=== PATIENT | female | born 1970 | race Caucasian/White ===

== ENCOUNTER → 2016-09-22 | Outpatient (CLI) | payer BC ==
[2016-09-22 14:13] VITALS: BP 146/86; PULSE 59; RESP 16
--- NOTE | 2016-09-24 09:24 | P.PN ---
Subjective This is follow-up visit for this patient with a history of severe and chronic low back pain ,we have done interventional pain management injection, lumbar epidural steroid injections x3 and she continues to have significant low back pain ,and is currently on pain medications 1-Neurontin 800 mg 4 times a day 2- Decker 7.5/325 every 6 hours Patient denies any side effects of the medication, denies excessive drowsiness or sleepiness, denies suicidal ideation, and reports that the current pain medication is NOT helping To control the pain and improve activity of daily living She denies any motor or sensory deficits, she denies any change in the bowel movement patient, no fever or night sweats Physical Examinations : 1-Constitutiona : Cooperative , not in acute distress . 2-HEENT : nech ; supple , no Lymphadenopathy , no Thyromegaly , normal thyroid size . eyes : no ptosis , no icterus, no photophobia . ENT : normal of hearing , normal oropharynx , no Thrush . 3- Respiratory : Chest clear to auscultations Bilaterally , no wheezing , no Rhonchi . 4- Cardiovascular : regular rate and rhythem , S1 , S2 , no S3 , no S4. 5- Gastrointestinal : abdomen soft no tenderness , bowel sounds positive all four quadrents , no organomegally . 6- Genitourinary : Defferred . 7- neurologic : Cranial nerve II to XII intact , no focal neurological deffecit . 8-psychatric : alert , oriented X 3 , appropriate affect , intact judgment and insight . 9-Lymphatic : no Lymphadenopathy . 10- musculoskeltal : exams of the cervical spine = motor strength normal bilateral upper extremities exams of the Lumber spine = motor strength lower extremities ,thigh and legs .5/5 deep tendon reflexes : normal Knee Jerk , normal ankle Jerk . lumber facet Loading Test positive on the left side only strait leg raising test negative bilaterally Fabere test negative bilaterally Range of motion: Range of motion in flexion of the lumbar spine 30 degrees Range of motion range of motion of extension of the lumbar spine 10 Sever tenderness over the Sacroiliac joint on the Right , and Left side Assessment and plan = - Chronic low back pain secondary to lumbar degenerative disc disease , lumbar spondylosis with facet arthropathy without myelopathy , - We've done lumbar epidural steroid injections 3 she has no benefit from it , SHE is complaining of severe low back pain (left side only ) - diagnoses, prognosis , and treatment options including but not limited to physical therapy, surgical interventions, interventional therapies , and medication management including narcotics and adjuvant medication were discussed with the patient and all The questions answered -medication management = prescription refill from her primary care -procedure= patient will be scheduled for facet medial branch block and L3-4 /L4-5 /L5-S1 2 on if she had good results then proceed with the radiofrequency ablation of the medial branch lumbar area Objective - Vital Signs Vital signs: Vital Signs Temp Pulse 59 L 09/22/16 14:06 Resp 16 09/22/16 14:06 BP 146/86 09/22/16 14:06 Pulse Ox 99 09/22/16 14:06 Intake & Output 09/21/16 09/22/16 09/22/16 18:59 06:59 18:59 Weight 90.718 kg
== END | disposition home or self-care (01) ==
LOC: PNWHC3 13:40
PROVIDERS: ATTEND Specialist
DX: M51.36 Other intervertebral disc degeneration, lumbar region (principal); M47.816 Spondylosis without myelopathy or radiculopathy, lumbar region; M46.96 Unspecified inflammatory spondylopathy, lumbar region; Z79.899 Other long term (current) drug therapy
CPT/HCPCS: 99211

== ENCOUNTER 2016-10-04 09:53 | Day surgery (SDC) | payer BC ==
[~2016-10-04 09:53] MED LIST: LACTATED RINGERS 1,000 ML IV SCH
[2016-10-04 10:10] VITALS: TEMP 96.7
[2016-10-04] MEDS ORDERED: LIDOCAINE 1% 20 ML VIAL (10MG/ML) FOR IV START INTRADERMA ONE (10:11)
[2016-10-04] MEDS ORDERED: TRIAMCINOLONE ACETONIDE 40 MG/ML 1 ML VIAL ONE (10:13)
[2016-10-04] MEDS ORDERED: MIDAZOLAM 2 MG/2 ML VIAL ONE (10:13)
[2016-10-04] MEDS ORDERED: BUPIVACAINE (PF) 0.5% 30 ML VIAL ONE (10:13)
[2016-10-04] MEDS ORDERED: fentaNYL (PF) 50 MCG/ML 2 ML AMP ONE (10:13)
--- NOTE | 2016-10-04 10:35 | P.PCN ---
Date of Procedure: 10/04/16 Surgeon: Alexey Keyes Pathology: none sent Condition: stable Disposition: PACU Description of Procedure: PREOPERATIVE DIAGNOSIS: L3-L4, L4-L5, and L5-S1 spondylosis without myelopathy and facet arthropathy. POSTOPERATIVE DIAGNOSIS: L3-L4, L4-L5, and L5-S1 spondylosis without myelopathy and facet arthropathy. PROCEDURE DESCRIPTION: Patient presents for LEFT ONLY L2, L3, L4 and L5 diagnostic medial branch blocks under fluoroscopic guidance. The procedure is performed using fluoroscopic guidance during needle placement to assure proper position and maximize safety. ANESTHESIA: Local with 1% lidocaine; conscious sedation EBL: Minimal PROCEDURE INDICATION: Patient with lumbar facet arthropathy signs and symptoms, here for diagnostic medial branch block #1. Pt does not take any blood thinning medications. PROCEDURE DESCRIPTION: The patient was seen and identified in the preoperative area. Risks, benefits, complications, and alternatives were discussed with the patient (including but not limited to incomplete pain relief, bleeding, infection, nerve damage, and allergies to medications), the patient agreed to proceed with the procedure and signed the consent after all questions were answered. Patient was taken to the OR and time out was completed to verify proper patient, position, laterality of pain, and allergies. Pt was placed in the prone position and a pillow was placed under the abdomen to reduce lumbar lordosis. The lumbosacral area was prepped and draped in the usual sterile fashion. Using oblique fluoroscopy, the eye of the "Deshaun dog" of left L4 vertebral body , which corresponds to the path of the medial branch originating from the level above, which is L3 in this case, was identified. Subsequently, a 22-gauge 3.5- inch spinal needle was inserted under fluoroscopic guidance toward the eye of the "Deshaun dog" of the left L4 vertebral body, corresponding to the junction of the superior articular process and the transverse process of the pedicle of the same level. After needle tip confirmation on lateral view and after negative aspiration for CSF and blood and without paresthesias, 1 mL of a 4 ml solution of 3 ml 0.5% preservative-free bupivacaine and 40 mg Kenalog was injected. Subsequently the needle was withdrawn intact and the same procedure was repeated for the left L2, left L4 and left L5 medial branches which together with left L3 medial branch correspond to the sensory innervation of the left L3- L4, L4-L5, and L5-S1 facet joints. Needle was withdrawn intact after each injection. At the end of the procedure, the skin was cleansed and bandages were applied. COMPLICATIONS: None. DISPOSITION/PLAN: The patient taken to the recovery area after the procedure in a stable condition for observation. Patient was reexamined prior to discharge and there were no issues. Patient was discharged home, accompanied by an adult, after meeting discharged criteria. Discharge instructions were give to the patient by the staff. Patient was specifically instructed not to drive today and to rest for the rest of the day. If the patient has relief, we will repeat this left sided MBB in 4-6 weeks for her.
[2016-10-04] MEDS ORDERED: IV FLUID CONTINUATION 1,000 ML IV ONE (10:40)
[2016-10-04 10:44] VITALS: RESP 18
--- NOTE | 2016-10-04 10:48 | FL ---
EXAMINATION TYPE: FL guided pain mgmt statistic DATE OF EXAM: 10/04/2016 10:38 AM HISTORY: Pain several left-sided renal calculi noted measuring up to 6 mm.
[2016-10-04 10:56] VITALS: BP 116/65; PULSE 62
== END 2016-10-04 11:10 | disposition home or self-care (01) ==
LOC: ORPAIN 09:53
PROVIDERS: ATTEND Anesthesiology
DX: G89.29 Other chronic pain (principal); M51.36 Other intervertebral disc degeneration, lumbar region; M47.817 Spondylosis without myelopathy or radiculopathy, lumbosacral region; M46.96 Unspecified inflammatory spondylopathy, lumbar region; Z79.891 Long term (current) use of opiate analgesic; Z79.899 Other long term (current) drug therapy
CPT/HCPCS: 64493; 64494; 64495; 99152; J2250; J3301; J3010

== ENCOUNTER 2016-10-24 04:47 | Emergency (ER) | payer BC ==
[2016-10-24 05:00] VITALS: RESP 16; TEMP 100
[2016-10-24] MEDS ORDERED: METOCLOPRAMIDE 5 MG/ML 2 ML VIAL IVP STA (05:15)
[2016-10-24] MEDS ORDERED: SODIUM CHLORIDE 0.9% 1,000 ML IV ONE (05:15)
[2016-10-24] MEDS ORDERED: diphenhydrAMINE 50 MG/ML 1 ML VIAL IVP STA (05:15)
[2016-10-24] MEDS ORDERED: KETOROLAC 30 MG/ML 1 ML VIAL IVP STA (05:15)
[2016-10-24] MEDS ORDERED: SUMAtriptan SUCCINATE 6 MG/0.5 ML VIAL SQ STA (06:11)
[2016-10-24] MEDS ORDERED: MORPHINE SULFATE 4 MG/ML SYRINGE IV STA (06:11)
--- NOTE | 2016-10-24 06:48 | ED ---
Headache HPI - General Chief Complaint: Headache Stated Complaint: Migraine x 3 days/Fever Time Seen by Provider: 10/24/16 05:04 Mode of arrival: ambulatory - History of Present Illness Initial Comments: This patient is a 46-year-old woman with history of previous migraine headaches , who states that she has had one of her usual migraine headaches that is been going on for about 3 days now. She states that it is similar in most respects, other than the fact that the Imitrex that she usually takes is not taking the headache away. She states that another respects it is similar. She denies any other symptoms, including no fever or chills, neck pain or stiffness, neurologic symptoms. It is not the worst headache that she has ever had. MD Complaint: "migraine" Onset/Timin -: days(s) Onset Description: gradual Location: left, temporal Severity: severe Quality: aching, similar to previous headaches Consistency: constant Improves With: nothing Worsens With: light, noise Context: occurred at rest Treatments Prior to Arrival: migraine medication - Related Data Home Medications Medication Instructions Recorded Confirmed Gabapentin [Neurontin] 800 mg PO QID 04/24/14 10/24/16 Ondansetron HCl [Zofran] 8 mg PO DIRECTED PRN 04/24/14 10/24/16 Pyridostigmine [Mestinon] 60 mg PO TID 04/24/14 10/24/16 SUMAtriptan SUCCINATE [Imitrex] 100 mg PO DIRECTED PRN 04/24/14 10/24/16 cloNIDine HCL [Catapres] 0.05 mg PO BID 04/24/14 10/24/16 HYDROcodone/APAP 7.5-325MG [[place] 7.5 mg PO Q6HR PRN 06/14/14 10/24/16 7.5] tiZANidine HCL [Zanaflex] 4 mg PO Q6HR PRN 07/09/14 10/24/16 Cholecalciferol [Vitamin D3] 5,000 unit PO DAILY 06/22/16 10/24/16 Allergies Allergy/AdvReac Type Severity Reaction Status Date / Time adhesive Allergy Rash/Hives Verified 09/22/16 14:13 adhesive tape Allergy Rash/Hives Verified 09/22/16 14:13 amoxicillin [Amoxicillin] Allergy Rash/Hives Verified 09/22/16 14:13 bupropion HCl Allergy Rash/Hives, Verified 09/22/16 14:13 [From Wellbutrin] DYSPNEA clindamycin HCl Allergy Rash/Hives Verified 09/22/16 14:13 [From Cleocin] clindamycin palmitate HCl Allergy Rash/Hives Verified 09/22/16 14:13 [From Cleocin] clindamycin phosphate Allergy Rash/Hives Verified 09/22/16 14:13 [From Cleocin] codeine Allergy Nausea & Verified 09/22/16 14:13 Vomiting,HIVES doxycycline Allergy Rash/Hives, Verified 09/22/16 14:13 SOB erythromycin base Allergy Abdominal Verified 09/22/16 14:13 [Erythromycin Base] Pain estrogens, conjugated Allergy Itching Verified 09/22/16 14:13 [From Premarin] etodolac [From Lodine] Allergy Rash/Hives Verified 09/22/16 14:13 pregabalin [From Lyrica] Allergy BLURRED Verified 09/22/16 14:13 VISION AND HAND NUMBNESS sulfamethoxazole Allergy Rash/Hives Verified 09/22/16 14:13 [From Bactrim] topiramate [From Topamax] Allergy HAND Verified 09/22/16 14:13 NUMBNESS trimethoprim [From Bactrim] Allergy Rash/Hives Verified 09/22/16 14:13 Review of Systems ROS Statement: Those systems with pertinent positive or pertinent negative responses have been documented in the HPI. ROS Other: All systems not noted in ROS Statement are negative. Constitutional: Denies: fever, chills, weakness Eyes: Denies: eye pain, vision change Respiratory: Denies: cough, dyspnea Gastrointestinal: Reports: nausea. Denies: abdominal pain, vomiting Musculoskeletal: Denies: back pain Skin: Denies: rash Neurological: Reports: headache. Denies: weakness, numbness, paresthesias, confusion Past Medical History Past Medical History: Deep Vein Thrombosis (DVT), Fibromyalgia, Osteoarthritis ( OA), Supraventricular Tachycardia (SVT) Additional Past Medical History / Comment(s): HX KIDNEY STONES, TMJ, MIGRAINES, VARICOSE VEINS,ULCERS, IBS, MYASTHEMIA GRAVIS, Herniated Discs. History of Any Multi-Drug Resistant Organisms: None Reported Past Surgical History: Cardiac Ablation, Section, Cholecystectomy, Hysterectomy, Tubal Ligation Additional Past Surgical History / Comment(s): VICKY.VARICOSE VEIN STRIPPING, OOPHERECTOMY,KITTY FUNDOPLICATION, PAIN PROCEDURE. Past Anesthesia/Blood Transfusion Reactions: Motion Sickness Past Psychological History: No Psychological Hx Reported Smoking Status: Never smoker Past Alcohol Use History: Occasional Past Drug Use History: None Reported - Past Family History Mother Family Medical History: Cancer General Exam General appearance: alert, in no apparent distress Head exam: Present: atraumatic, normocephalic, normal inspection Eye exam: Present: normal appearance, PERRL, EOMI. Absent: scleral icterus, conjunctival injection, nystagmus ENT exam: Present: normal oropharynx Neck exam: Present: normal inspection, full ROM. Absent: meningismus Neurological exam: Present: alert, oriented X3, CN II-XII intact, normal gait. Absent: motor sensory deficit Skin exam: Present: warm, dry, intact, normal color. Absent: rash Course Vital Signs 10/24/16 10/24/16 04:57 06:00 Temperature 100 F H Pulse Rate 84 74 Respiratory 16 16 Rate Blood Pressure 163/82 131/74 O2 Sat by Pulse 98 97 Oximetry Disposition Clinical Impression: Headache Disposition: HOME SELF-CARE Condition: Good Instructions: Acute Headache (ED) Referrals: Nathan Crespo MD [Primary Care Provider] - 1-2 days
[2016-10-24] MEDS ORDERED: methylPREDNISolone SOD SUCCI 125 MG/2 ML VIAL IV STA (06:51)
[2016-10-24 07:15] VITALS: BP 131/78; PULSE 71
== END 2016-10-24 07:14 | disposition home or self-care (01) ==
LOC: EC 04:47
DX: R51 Headache (principal); M79.7 Fibromyalgia; Z79.899 Other long term (current) drug therapy; Z88.1 Allergy status to other antibiotic agents; Z88.5 Allergy status to narcotic agent; Z88.0 Allergy status to penicillin; Z88.2 Allergy status to sulfonamides; Z88.8 Allergy status to other drugs, medicaments and biological substances; Z86.718 Personal history of other venous thrombosis and embolism
CPT/HCPCS: 99283; 96374; 96375; 96372; J3030; J2270; J1200; J2765; J2930; J1885

== ENCOUNTER 2016-11-03 08:38 | Day surgery (SDC) | payer BC ==
[2016-11-03 08:55] VITALS: RESP 16; TEMP 96.8
[2016-11-03] MEDS ORDERED: LIDOCAINE 1% 20 ML VIAL (10MG/ML) FOR IV START INTRADERMA ONE (09:03)
[2016-11-03] MEDS ORDERED: BUPIVACAINE (PF) 0.5% 30 ML VIAL ONE (09:46)
[2016-11-03] MEDS ORDERED: fentaNYL (PF) 50 MCG/ML 2 ML AMP ONE (09:46)
[2016-11-03] MEDS ORDERED: TRIAMCINOLONE ACETONIDE 40 MG/ML 1 ML VIAL ONE (09:46)
[2016-11-03] MEDS ORDERED: MIDAZOLAM 2 MG/2 ML VIAL ONE (09:46)
--- NOTE | 2016-11-03 10:10 | P.PCN ---
Date of Procedure: 11/03/16 Surgeon: Alexey Keyes Pathology: none sent Condition: stable Disposition: PACU Description of Procedure: PREOPERATIVE DIAGNOSIS: L3-L4, L4-L5, and L5-S1 spondylosis without myelopathy and facet arthropathy. POSTOPERATIVE DIAGNOSIS: L3-L4, L4-L5, and L5-S1 spondylosis without myelopathy and facet arthropathy. PROCEDURE DESCRIPTION: Patient presents for LEFT ONLY L2, L3, L4 and L5 diagnostic medial branch blocks under fluoroscopic guidance. The procedure is performed using fluoroscopic guidance during needle placement to assure proper position and maximize safety. ANESTHESIA: Local with 1% lidocaine; conscious sedation EBL: Minimal PROCEDURE INDICATION: Patient with lumbar facet arthropathy signs and symptoms, here for diagnostic medial branch block #2, patient is still having >60% relief from first procedure although it took two weeks to kick in. Pt does not take any blood thinning medications. PROCEDURE DESCRIPTION: The patient was seen and identified in the preoperative area. Risks, benefits, complications, and alternatives were discussed with the patient (including but not limited to incomplete pain relief, bleeding, infection, nerve damage, and allergies to medications), the patient agreed to proceed with the procedure and signed the consent after all questions were answered. Patient was taken to the OR and time out was completed to verify proper patient, position, laterality of pain, and allergies. Pt was placed in the prone position and a pillow was placed under the abdomen to reduce lumbar lordosis. The lumbosacral area was prepped and draped in the usual sterile fashion. Using oblique fluoroscopy, the eye of the "Deshaun dog" of left L4 vertebral body , which corresponds to the path of the medial branch originating from the level above, which is L3 in this case, was identified. Subsequently, a 22-gauge 3.5- inch spinal needle was inserted under fluoroscopic guidance toward the eye of the "Deshaun dog" of the left L4 vertebral body, corresponding to the junction of the superior articular process and the transverse process of the pedicle of the same level. After needle tip confirmation on lateral view and after negative aspiration for CSF and blood and without paresthesias, 1 mL of a 4 ml solution of 3 ml 0.5% preservative-free bupivacaine and 40 mg Kenalog was injected. Subsequently the needle was withdrawn intact and the same procedure was repeated for the left L2, left L4 and left L5 medial branches which together with left L3 medial branch correspond to the sensory innervation of the left L3- L4, L4-L5, and L5-S1 facet joints. Needle was withdrawn intact after each injection. At the end of the procedure, the skin was cleansed and bandages were applied. COMPLICATIONS: None. DISPOSITION/PLAN: The patient taken to the recovery area after the procedure in a stable condition for observation. Patient was reexamined prior to discharge and there were no issues. Patient was discharged home, accompanied by an adult, after meeting discharged criteria. Discharge instructions were give to the patient by the staff. Patient was specifically instructed not to drive today and to rest for the rest of the day. If the patient has relief, we will proceed with left lumbar RFA (four levels).
[2016-11-03] MEDS ORDERED: IV FLUID CONTINUATION 1,000 ML IV ONE (10:12)
[2016-11-03 10:31] VITALS: BP 121/74; PULSE 61
--- NOTE | 2016-11-03 10:52 | FL ---
EXAMINATION TYPE: FL guided pain mgmt statistic DATE OF EXAM: 11/03/2016 10:15 AM FLUOROSCOPY Fluoroscopy time of 20 seconds was used during lumbar facet pain intervention procedure. 4 image/s d ocument/s the procedure.
== END 2016-11-03 10:45 | disposition home or self-care (01) ==
LOC: ORPAIN 08:38
PROVIDERS: ATTEND Anesthesiology
DX: G89.29 Other chronic pain (principal); M47.817 Spondylosis without myelopathy or radiculopathy, lumbosacral region; M46.96 Unspecified inflammatory spondylopathy, lumbar region; G70.00 Myasthenia gravis without (acute) exacerbation; R51 Headache; Z79.891 Long term (current) use of opiate analgesic; Z79.899 Other long term (current) drug therapy
CPT/HCPCS: 64493; 64494; 64495; 99152; J2250; J3301; J3010

== ENCOUNTER 2016-12-23 06:29 | Day surgery (SDC) | payer BC ==
[2016-12-20 15:03] VITALS: BMI 29.5
[2016-12-23 07:24] VITALS: RESP 16; TEMP 97.9
[2016-12-23] MEDS ORDERED: LACTATED RINGERS 1,000 ML IV ONE (07:28)
[2016-12-23] MEDS ORDERED: LIDOCAINE 1% 20 ML VIAL (10MG/ML) FOR IV START INTRADERMA ONE (07:29)
[2016-12-23] MEDS ORDERED: LACTATED RINGERS 1,000 ML IV SCH (08:00)
[2016-12-23] MEDS ORDERED: MIDAZOLAM 2 MG/2 ML VIAL ONE (08:07)
[2016-12-23] MEDS ORDERED: BUPIVACAINE (PF) 0.5% 30 ML VIAL ONE (08:07)
[2016-12-23] MEDS ORDERED: TRIAMCINOLONE ACETONIDE 40 MG/ML 1 ML VIAL ONE (08:07)
[2016-12-23] MEDS ORDERED: fentaNYL (PF) 50 MCG/ML 2 ML AMP ONE (08:07)
--- NOTE | 2016-12-23 08:36 | P.PCN ---
Date of Procedure: 12/23/16 Preoperative Diagnosis: Lumbar spondylosis without myelopathy Postoperative Diagnosis: Same as above Procedure(s) Performed: Left lumbar medial branch radiofrequency ablation under fluoroscopic guidance for the medial branches: L3, L4, and the dorsal ramus of L5 Implants: Anesthesia: other (Moderate sedation) Surgeon: Masoud Vicente Pathology: none sent Condition: stable Disposition: PACU Indications for Procedure: Operative Findings: Description of Procedure: The patient was seen in the preop holding area consent was obtained then she was brought into the procedure room and placed in prone position. Skin was prepped with Betadine 3 and draped in a sterile manner. Lidocaine 1% was used to numb the skin up at the target points that were chosen as follows: The L5-S1 level which corresponds to the dorsal ramus of L5 the target point was the superior medial aspect of the sacral ala on the left side of the spine on the AP view of fluoroscopy, and for the L3 and L4 medial branches the target points were the connection between the transverse process and the superior articular process of L4 and L5 vertebra respectively on the left oblique view of fluoroscopy. I used 18-gauge 100 mm in length with 10 mm curved active tip radiofrequency ablation needles for this procedure. He, oblique, and lateral views of fluoroscopy were used to verify needle tip positions. Then motor stimulation started which showed only local twitches of these needles with no radiation of twitching to the left lower extremity. For the third a solution of 2 MLS Marcaine 0.5% +40 mg of Kenalog and 1 mL of the solution was given in each needle. Radiofrequency ablation was then started for 90 seconds at 80C and after the first session is done the needles were withdrawn by 1 or 2 mm and the bevels were turned 180 and another session of ablation was started for 90 seconds at 80C. Patient tolerated procedure well. Fluoroscopy time 16 seconds.
[2016-12-23] MEDS ORDERED: IV FLUID CONTINUATION 1,000 ML IV ONE (08:38)
[2016-12-23 08:57] VITALS: BP 109/72; PULSE 57
--- NOTE | 2016-12-23 15:51 | FL ---
Fluoroscopy INDICATION: Pain FINDINGS: Fluoroscopy time: 16 seconds. Images obtained: 1. IMPRESSIONS: 1. Documentation of fluoroscopy.
== END 2016-12-23 09:12 | disposition home or self-care (01) ==
LOC: ORPAIN 06:29
PROVIDERS: ATTEND Anesthesiology
DX: M47.816 Spondylosis without myelopathy or radiculopathy, lumbar region (principal); Z79.899 Other long term (current) drug therapy
CPT/HCPCS: 99152; 64635; 64636 ×2; J2250; J3301; J3010

== ENCOUNTER → 2017-02-08 | Outpatient (CLI) | payer BC ==
[2017-02-08 13:57] VITALS: PULSE 61; RESP 16; TEMP 98.5
--- NOTE | 2017-02-08 14:13 | P.PN ---
Progress Note - Text Patient returns for followup for chronic back pain with radiation to left hip. Patient recently underwent left lumbar RFA in November, which has provided good relief since procedure, except for a two-week span (beginning two weeks AFTER lumbar RFA) where she had severe pain in the left side of her low back that was only improved by lying down. She was sent to Dr. Al by her PCP who did not do any other interventions or scans for her during this time and the pain resolved in approximately 13 days. Patient continues on [place] medications for pain from her PCP with good relief. Patient denies adverse drug effects from medications. Today, pt denies new-onset weakness, bowel/bladder incontinence, or any other signs or symptoms of cauda equina syndrome. There are no signs of acute intoxication, and no indications of medication diversion or overuse. In addition to above, 13-point review of systems is also negative for chest pain , shortness of breath, changes in vision, changes in hearing, new onset weakness , abdominal pain, diarrhea, extreme fatigue, malaise, fever, skin changes, homicidal or suicidal ideation, or bowel or bladder incontinence. Vital Signs: Reviewed in EMR Gen: WDWN, AAOx3, NAD HEENT: NCAT, EOMI, hearing grossly normal Pulm: resp unlabored Abd: soft, NT, ND Neck: supple, trachea midline ROM in flexion lumbar spine: reduced ROM in extension lumbar spine: reduced Lumbar paravertebral tenderness: + Facet loading: + L side SI joint tenderness: neg All's test: + L side Straight leg raise: neg Neuro: CN II-XII grossly intact, muscle strength lower extremities PRESERVED Imaging: Reviewed in EMR Assessment: 1. lumbar spondylosis 2. chronic pain syndrome 3. chronic use of opioids Plan: 1. Explanation: Opioid and psychological risk scores were reviewed. Diagnoses , prognoses, and multiple treatment options including but not limited to physical therapy, interventional therapies, adjuvant medical therapies, narcotic medication therapies, and surgery were discussed with the patient and all questions were answered to the patient's satisfaction. 2. Opioid agreement: Patient has previously signed narcotic agreement, and was orally counseled to not overuse, abuse, divert, or cell medications, and to take them as prescribed by only 1 healthcare provider. The patient was also counseled to store opioid medications in a safe and preferably locked location. Patient was also counseled against driving or operating heavy equipment while using narcotic medications and also to not use alcohol or any illicit or recreational drugs. The patient verbalized understanding that lack of compliance with any of the above and likely result in failure to renew narcotic prescriptions, possible discharge from the clinic, and possible legal ramifications thereafter if indicated. 3. Counseling: The patient was counseled extensively on BODY MASS INDEX, EXERCISE. Specifically, the patient was instructed regarding the importance of weight control, and exercise in the context of both chronic pain and overall health. 4. Procedures: none for now 5. Consultations: None 6. Investigations: None 7. Medications: none prescribed 8. Disposition: f/u as needed; patient can call to schedule next left lumbar RFA in 4-5 months. Will hold off on iliolumbar ligament injection as (presumed) acute post-RF pain resolved; will consider if it returns. PQRS measures: 1-Patient's medications are documented in the chart. 2-Tobacco use is negative 3-Patient has not had a pneumococcal vaccine. 4-Advanced care planning discussed, patient unable to give. 5-Opioid contract signed with the patient. 6-Pain positive, follow-up visit or procedure scheduled 7-Patient's blood pressure measured and documented, and patient will follow up with the primary care due to hypertension. 8-Patient's weight was measured, and body mass index ABOVE the normal limits, and counseling was done. Patient instructed to follow up with PCP. 9-Patient WAS NOT identified as an unhealthy alcohol user.
[2017-02-08 14:17] VITALS: BP 141/91
== END ==
LOC: PNWHC3 13:32
PROVIDERS: ATTEND Anesthesiology
DX: M47.816 Spondylosis without myelopathy or radiculopathy, lumbar region (principal); Z79.891 Long term (current) use of opiate analgesic
CPT/HCPCS: 99211

== ENCOUNTER → 2017-05-18 | Outpatient (CLI) | payer BC ==
[2017-05-18 14:27] LABS: Basophils # (A) 0.1 k/uL (0-0.2); Basophils % (A) 1 %; CH 31.9; CHCM 33.1; Eosinophils # (A) 0.1 k/uL (0-0.7); Eosinophils % (A) 1 %; HCT 44.5 % (34.0-46.0); Luc # (Auto) 0.19; Luc % (Auto) 3; Lymphocytes # (A) 1.6 k/uL (1.0-4.8); Lymphocytes % (A) 25 %; MCH 30.5 pg (25.0-35.0); MCHC 31.4 g/dL (31.0-37.0); MCV 97.1 fL (80.0-100.0); Mean Platelet Volume 7.2; Monocytes # (A) 0.4 k/uL (0-1.0); Monocytes % (A) 6 %; Neutrophils # (A) 4.1 k/uL (1.3-7.7); Neutrophils % (A) 64 %; RBC 4.58 m/uL (3.80-5.40); RDW 13.2 % (11.5-15.5); WBC 6.4 k/uL (3.8-10.6); WBC (Perox) 6.34
[2017-05-18 14:38] LABS: ALT 27 U/L (9-52); AST 20 U/L (14-36); Alkaline Phosphatase 117 U/L (38-126); Anion Gap 6 mmol/L; Blood Urea Nitrogen 10 mg/dL (7-17); Carbon Dioxide 26 mmol/L (22-30); Chloride 108 mmol/L (98-107); Glucose 91 mg/dL (74-99); Non-African American GFR(MDRD) >60 (>60 ml/min/1.73 sqM); Potassium 4.4 mmol/L (3.5-5.1); Sodium 140 mmol/L (137-145); Total Bilirubin 0.4 mg/dL (0.2-1.3); Total Protein 7.3 g/dL (6.3-8.2)
[2017-05-19 11:38] LABS: Free Kappa Lt Chain Qnt, Serum 2.43 mg/dL (0.33-1.94)
== END | disposition home or self-care (01) ==
LOC: LABWHC1 13:42
PROVIDERS: ATTEND Family Medicine
DX: Z00.00 Encounter for general adult medical examination without abnormal findings (principal); G70.00 Myasthenia gravis without (acute) exacerbation
CPT/HCPCS: 36415; 80053; 83883; 84439; 84443; 85025

== ENCOUNTER 2017-05-31 08:54 | Day surgery (SDC) | payer BC ==
[2017-05-27 08:17] VITALS: BMI 29.8
[2017-05-31 09:13] VITALS: RESP 16; TEMP 97.8
[2017-05-31] MEDS ORDERED: LIDOCAINE 1% 20 ML VIAL (10MG/ML) FOR IV START INTRADERMA ONE (09:14)
--- NOTE | 2017-05-31 10:26 | P.PCN ---
Date of Procedure: 05/31/17 Procedure(s) Performed: PREOPERATIVE DIAGNOSIS: 1- Lumbar radiculitis 2-Lumbar spondylosis with Facet arthropathy without myelopathy POSTOPERATIVE DIAGNOSIS: Same as preop diagnosis. PROCEDURE 1. Lumbar epidural steroid injection under fluoroscopic guidance at the L5-S1 level. ( left side directed ) 2. Lumbar epidurogram. ANESTHESIA: Local with 1% lidocaine 3 ml and IV sedation with Versed 2 mg , and fentanyle 100 Mcg EBL: Minimal PROCEDURE INDICATION: The patient with low back pain and radiculitis symptoms unresponsive to conservative treatment. Fluoroscopy was used to optimize visualization of the needle placement and to maximize safety. PROCEDURE DESCRIPTION / TECHNIQUE: The patient was seen and identified in the preoperative area. Risks, benefits , complications including but not limited to infections ,bleeding ,allergic reaction to the medications ,nerve damage and not complete pain releife , and alternatives were discussed with the patient. The patient agreed to proceed with the procedure and signed the consent. IV was started, and vital signs were stable. Patient was taken to the OR and time out was completed. The patient was placed in the prone position on procedure table and a pillow was placed under the abdomen to reduce lumbar lordosis. The lumbosacral area was prepped and draped in the usual sterile fashion.ere closely monitored during the procedure. Conscious sedation was used during the procedure to decrease patients anxiety. Vital signs was monitered during the entire procedure. Using anterior-posterior fluoroscopy, the L5-S1 interlaminar space was identified and the skin over this site was marked and then infiltrated with 1% lidocaine subcutaneously. Subsequently, a 20-gauge Tuohy epidural needle was inserted and advanced toward the epidural space using the ``Loss of resistance technique and guided by AP and lateral fluoroscopy. The correct needle position in the epidural space was verified with the injection of 2 mL of the water soluble contrast dye Omnipaque 180 contrast and observing an excellent epidurogram with the epidural spread of the dye, after negative aspiration for blood and CSF and in the absence of paresthesias. Again after negative aspiration, a 6 ml mixture containing 20 mg of Dexamethasone and 2 ml of preservative free Normal Saline, and 2 ml of preservative free lidocaine 1% solution was injected and a washout of epidurogram was seen. Needle was withdrawn intact, skin was cleansed, and bandages were applied. COMPLICATIONS: None DISPOSITION / PLANS: The patient was placed in a supine position and transferred to the recovery area in a stable condition for observation. There was no evidence of lower extremity motor or sensory deficit after the procedure. Patient was discharged from the recovery room after meeting discharge criteria. Home discharge instructions were given to the patient by the staff. The patient was reexamined prior to discharge. The patient will schedule a follow up in the clinic in 2-4 weeks.
[2017-05-31] MEDS ORDERED: IV FLUID CONTINUATION 1,000 ML IV ONE (10:31)
[2017-05-31 10:44] VITALS: PULSE 52
[2017-05-31 10:58] VITALS: BP 101/63
--- NOTE | 2017-05-31 11:01 | FL ---
EXAMINATION TYPE: FL guided pain mgmt statistic DATE OF EXAM: 05/31/2017 HISTORY: Flouroscopy time 1 seconds of fluoroscopy provided. IMPRESSION: 1. Fluoroscopy time.
== END 2017-05-31 11:01 | disposition home or self-care (01) ==
LOC: ORPAIN 08:54
PROVIDERS: ATTEND Specialist
DX: M47.26 Other spondylosis with radiculopathy, lumbar region (principal); M46.96 Unspecified inflammatory spondylopathy, lumbar region; Z86.718 Personal history of other venous thrombosis and embolism; I47.1 Supraventricular tachycardia
CPT/HCPCS: 62323; J2250; J1100; Q9965; J3010; 99152

== ENCOUNTER → 2017-06-30 | Outpatient (CLI) | payer BC ==
--- NOTE | 2017-06-30 13:14 | MM ---
Reason for exam: screening (asymptomatic). Last mammogram was performed 11 months ago. History: Patient is postmenopausal. Benign US breast aspiration single LT of the left breast, August 15, 2015. Took hormonal contraceptives for 4 years. Physical Findings: A clinical breast exam by your physician is recommended on an annual basis and results should be correlated with mammographic findings. MG 3D Screening Mammo W/Cad Bilateral CC and MLO view(s) were taken. Prior study comparison: July 29, 2016, bilateral MG 3d screening mammo w/cad. August 15, 2015, left breast MG diagnostic mammo LT wo CAD. There are scattered fibroglandular densities. Previous mammotome biopsy in the left breast. No significant changes when compared with prior studies. ASSESSMENT: Negative, BI-RAD 1 RECOMMENDATION: Routine screening mammogram of both breasts in 1 year.
== END | disposition home or self-care (01) ==
LOC: RADMAMWWP 10:39
PROVIDERS: ATTEND Family Medicine
DX: Z12.31 Encounter for screening mammogram for malignant neoplasm of breast (principal)
CPT/HCPCS: 77063; G0202

== ENCOUNTER → 2017-10-06 | Outpatient (CLI) | payer BC ==
[2017-10-06 12:06] VITALS: BP 158/93; PULSE 62; RESP 18
--- NOTE | 2017-10-06 12:37 | P.PN ---
Progress Note - Text Progress Note Date: 10/06/17 This is a 46-year-old female with history of chronic lower back and left hip pain with radiation to the left foot. The patient denies any numbness or tingling in the left lower extremity. She has an exacerbation of her lower back and leg pain for the last couple of days however she feels that her pain is better today. The patient denies any bowel or bladder dysfunction. The pain wakes her up at night. She is scheduled to see Dr. Álvarez tomorrow for possible hip pathology however the X-ray that she had previously did not show any signs of arthritis. The patient had good early for her pain after the last lumbar epidural that was done in July 2017. In addition to above, 13-point review of systems is also negative for chest pain , shortness of breath, changes in vision, changes in hearing, new onset weakness , abdominal pain, diarrhea, extreme fatigue, malaise, fever, skin changes, homicidal or suicidal ideation, or bowel or bladder incontinence. Vital Signs: Reviewed in EMR Gen: ,AAOx3, NAD HEENT: normal Pulm: resp unlabored Neck: supple, trachea midline ROM in flexion lumbar spine: reduced ROM in extension lumbar spine: reduced Lumbar paravertebral tenderness: + Facet loading: + L side, neg R side SI joint tenderness: neg All's test: - L side, -R side Straight leg raise: - Internal and external rotation of the left hip joint did not elicit hip pain. She has tenderness in the left greater trochanter She has normal and symmetrical deep tendon reflexes in the lower extremities she has mild weakness in the left knee flexion and extension due to her pain today. Neuro: CN II-XII grossly intact, muscle strength lower extremities PRESERVED Imaging: Reviewed in EMR Assessment: 1. lumbar spondylosis 2. chronic pain syndrome 3. chronic use of opioids 4. lumbar radiculitis 5-left greater trochanter bursitis Plan: 1. Explanation: Opioid and psychological risk scores were reviewed. Diagnoses , prognoses, and multiple treatment options including but not limited to physical therapy, interventional therapies, adjuvant medical therapies, narcotic medication therapies, and surgery were discussed with the patient and all questions were answered to the patient's satisfaction. 2. Opioid agreement: Patient has previously signed narcotic agreement, and was orally counseled to not overuse, abuse, divert, or cell medications, and to take them as prescribed by only 1 healthcare provider. The patient was also counseled to store opioid medications in a safe and preferably locked location. Patient was also counseled against driving or operating heavy equipment while using narcotic medications and also to not use alcohol or any illicit or recreational drugs. The patient verbalized understanding that lack of compliance with any of the above and likely result in failure to renew narcotic prescriptions, possible discharge from the clinic, and possible legal ramifications thereafter if indicated. 3. Counseling: The patient was counseled extensively on BODY MASS INDEX, EXERCISE. Specifically, the patient was instructed regarding the importance of weight control, and exercise in the context of both chronic pain and overall health. 4. Procedures: LESI x 1 left paramedian, and left greater trochanter bursa steroid injection 5. Consultations: The patient will see Dr. Álvarez tomorrow for her left hip pain 6. Investigations: None 7. Medications: none prescribed, the patient has enough [place] and she will resume using Zanaflex for a few days until this exacerbation is over 8. Disposition: f/u as procedure as scheduled PQRS measures: 1-Patient's medications are documented in the chart. 2-Tobacco use is negative 3-Patient has not had a pneumococcal vaccine. 4-Advanced care planning discussed, patient unable to give. 5-Opioid contract signed with the patient. 6-Pain positive, follow-up visit or procedure scheduled 7-Patient's blood pressure measured and documented, and patient will follow up with the primary care due to hypertension. 8-Patient's weight was measured, and body mass index ABOVE the normal limits, and counseling was done. Patient instructed to follow up with PCP. 9-Patient WAS NOT identified as an unhealthy alcohol user.
== END ==
LOC: PNWHC3 11:53
PROVIDERS: ATTEND Anesthesiology
DX: G89.4 Chronic pain syndrome (principal); M47.26 Other spondylosis with radiculopathy, lumbar region; Z79.891 Long term (current) use of opiate analgesic; M70.62 Trochanteric bursitis, left hip
CPT/HCPCS: 99211

== ENCOUNTER 2017-11-07 08:23 | Day surgery (SDC) | payer BC ==
[2017-11-02 08:52] VITALS: BMI 29.0
[2017-11-07] MEDS ORDERED: LACTATED RINGERS 1,000 ML IV ONE (09:21)
[2017-11-07 09:22] VITALS: PULSE 57; TEMP 97.4
[2017-11-07] MEDS ORDERED: LIDOCAINE 1% 20 ML VIAL (10MG/ML) FOR IV START INTRADERMA ONE (09:22)
--- NOTE | 2017-11-07 09:56 | P.PCN ---
Date of Procedure: 11/07/17 Preoperative Diagnosis: Lumbar Radiculopathy Postoperative Diagnosis: Lumbar Radiculopathy Procedure(s) Performed: Lumbar Epidural Steroid Injection Description of Procedure: Description of Procedure: PREOPERATIVE DIAGNOSIS: 1-Lumbar radiculitis. POSTOPERATIVE DIAGNOSIS: 1-Lumbar radiculitis. PROCEDURE 1. Lumbar epidural steroid injection under fluoroscopic guidance at the L5-S1 level. 2. Lumbar epidurogram. ANESTHESIA: Local with 1% lidocaine; IV sedation with Versed/fentanyl. EBL: Minimal PROCEDURE INDICATION: The patient with low back pain and radiculitis symptoms unresponsive to conservative treatment after two weeks' relief from first LESI. Fluoroscopy was used to optimize visualization of the needle placement and to maximize safety. No use of blood thinners. PROCEDURE DESCRIPTION / TECHNIQUE: The patient was seen and identified in the preoperative area. Risks, benefits, complications, and alternatives were discussed with the patient, including but not limited to bleeding, infection, nerve damage, allergic reactions to medications, and incomplete pain relief. The patient agreed to proceed with the procedure and signed the consent after all questions were answered. IV was started, and vital signs were stable. Patient was taken to the OR and time out was completed to confirm patient position, procedure, laterality of pain, and allergies. The patient was placed in the prone position on procedure table and a pillow was placed under the abdomen to reduce lumbar lordosis. The lumbosacral area was prepped and draped in the usual sterile fashion. Critical pause was taken. Vital signs were closely monitored during the procedure. Conscious sedation was used during the procedure to decrease patients anxiety. Using anterior-posterior fluoroscopy, the L5-S1 interlaminar space was identified and the skin over this site was marked and then infiltrated with 1% lidocaine subcutaneously in a left paramedian approach. Subsequently, a 20- gauge 3.5-inch Tuohy epidural needle was inserted and advanced toward the epidural space using the Loss of resistance technique and guided by AP and lateral fluoroscopy. The correct needle position in the epidural space was verified with the injection of 2 mL of the water soluble contrast dye Omnipaque 300 contrast and observing an excellent epidurogram with the epidural spread of the dye, after negative aspiration for blood and CSF and in the absence of paresthesias. Again after negative aspiration, a 5 ml mixture containing 10 mg of PF Decadron and 4 ml of preservative free Normal Saline was injected and a washout of epidurogram was seen. Needle was withdrawn intact, skin was cleansed , and bandages were applied. COMPLICATIONS: None COMMENTS: DISPOSITION / PLANS: The patient was placed in a supine position and transferred to the recovery area in a stable condition for observation. There was no evidence of lower extremity motor or sensory deficit after the procedure. Patient was discharged from the recovery room after meeting discharge criteria. Home discharge instructions were given to the patient by the staff. The patient was reexamined prior to discharge and there were no issues. The patient will schedule a follow up in the clinic in 2-4 weeks.
[2017-11-07] MEDS ORDERED: IV FLUID CONTINUATION 1,000 ML IV ONE (10:25)
[2017-11-07 10:30] VITALS: RESP 18
[2017-11-07 10:45] VITALS: BP 112/57
--- NOTE | 2017-11-07 10:59 | FL ---
EXAMINATION TYPE: FL guided pain mgmt statistic DATE OF EXAM: 11/07/2017 HISTORY: Pain LESI. 6 secs FL time. [address] Shaikh.
== END 2017-11-07 11:00 | disposition home or self-care (01) ==
LOC: ORPAIN 08:23
PROVIDERS: ATTEND Anesthesiology
DX: M54.16 Radiculopathy, lumbar region (principal); G70.00 Myasthenia gravis without (acute) exacerbation; Z90.710 Acquired absence of both cervix and uterus
CPT/HCPCS: 62323; J2250; J3301; J3010; Q9966

== ENCOUNTER → 2017-12-15 | Outpatient (CLI) | payer BC ==
[2017-12-15 12:40] VITALS: BP 158/95; PULSE 65; RESP 16
--- NOTE | 2017-12-15 12:52 | P.PAINPG ---
Subjective Progress Note Date: 12/15/17 Principal diagnosis: History of back pain and left hip pain This is a very pleasant 47-year-old woman is undergone previous epidural steroid injections from our facility. She says these are very helpful in reducing her back pain is also of her leg pain. She complains today of intractable left hip pain. She feels this is very deep inside of her back. She has followed up with an orthopedist for her hip who felt this was not caused by her hip but rather coming from her back. Objective - Vital Signs Vital signs: Vital Signs Temp Pulse 65 12/15/17 12:34 Resp 16 12/15/17 12:34 BP 158/95 12/15/17 12:34 Pulse Ox Intake & Output 12/14/17 12/15/17 12/15/17 18:59 06:59 18:59 Weight 90.718 kg - Exam Gen: WDWN, AAOx3, NAD HEENT: NCAT, EOMI, hearing grossly normal Pulm: resp unlabored Good range of motion with left hip abduction, adduction, flexion, extension. Unable to reproduce symptoms with these maneuvers. Neuro: muscle strength lower extremities no focal motor deficits Assessment and Plan (1) Left hip pain Current Visit: Yes Status: Acute Code(s): M25.552 - PAIN IN LEFT HIP SNOMED Code(s): 69918930 (2) Lumbar radicular pain Current Visit: Yes Status: Acute Code(s): M54.16 - RADICULOPATHY, LUMBAR REGION SNOMED Code(s): 432681063 Plan: At this point, I believe that we have offered the patient what treatments we can. She has been to physical therapy. She is also meant to injection therapy. She does take medications as prescribed by another physician. I recommended that she follow-up with a neurosurgeon who she has seen in the past. This will give her evaluation. He will order whenever imaging needs for her. Her last MRI was approximately 18 months ago. PQRS Measure Charge Sheet Measure #130: Documentation of Current Meds in Medical Chart: Patient's medications documented in chart Measure #226: Tobacco Use: Screen & Cessation Intervention: Pt not a tobacco user Measure #111: Pneumonia Vaccination: Pneumococcal vaccine NOT administered or previously given Measure #47: Advance Care Plan: Advance care planning discussed & documented, pt chose/unable to give Measure #412: Opioid Treatment Agreement: No documentation of signed opioid treatment agreement Measure #408: Opioid Therapy Follow-up Evaluation: Patient had NO f/u eval minimum every 3 months during opioid therapy Measure #317: Preventitive Care & Scrn High Bld Press & F/U: Pre-hypertensive or hypertensive BP documented, pt will f/u with PCP Measure #128: Body Mass Index (BMI) Screening & Follow-up: BMI documented ABOVE normal parameters - f/u documented Measure #131: Pain Assessment & Follow-up: Pain positive & plan documented Measure #431: Unhealthy Alcohol Use Preventative Care & Scrn: Patient not identified as an unhealthy alcohol user PQRS Narrative: Smoking Status Never smoker Do You Want the Pneumonia No Vaccine AT THIS TIME? Blood Pressure 158/95 Pain Intensity [Left Hip] 4 Scale Used Numeric (1 - 10) Hx Alcohol Use (MH) Yes: OCC Home Medications: Ambulatory Orders Gabapentin [Neurontin] 800 mg PO QID 04/24/14 Ondansetron HCl [Zofran] 8 mg PO DIRECTED PRN 04/24/14 Pyridostigmine [Mestinon] 60 mg PO TID 04/24/14 SUMAtriptan SUCCINATE [Imitrex] 100 mg PO DIRECTED PRN 04/24/14 cloNIDine HCL [Catapres] 0.05 mg PO BID 04/24/14 HYDROcodone/APAP 7.5-325MG [[place] 7.5] 7.5 mg PO Q6HR PRN 06/14/14 tiZANidine HCL [Zanaflex] 4 mg PO Q6HR PRN 07/09/14 Cholecalciferol [Vitamin D3] 5,000 unit PO DAILY 06/22/16 Controlled Substance Measures - Controlled Substance Measures Is patient prescribed a controlled substance at discharge?: No If prescribed controlled substance>3 days was MAPS reviewed?: No When asked, does pt state using other controlled substances?: No
== END | disposition home or self-care (01) ==
LOC: PNWHC3 11:57
PROVIDERS: ATTEND Pain Medicine Pain Medicine
DX: G89.29 Other chronic pain (principal); M54.16 Radiculopathy, lumbar region; M25.552 Pain in left hip; Z79.891 Long term (current) use of opiate analgesic; Z79.52 Long term (current) use of systemic steroids; Z79.899 Other long term (current) drug therapy
CPT/HCPCS: 99211

== ENCOUNTER → 2018-01-25 | Outpatient (CLI) | payer BC ==
--- NOTE | 2018-01-25 23:48 | MR ---
EXAMINATION TYPE: MR lumbar spine wo con DATE OF EXAM: 01/25/2018 COMPARISON: 05/25/2016 HISTORY: Low back and left hip pain TECHNIQUE: Multiplanar, multisequence images of the lumbar spine were acquired. The lumbar vertebra have normal alignment. There is degenerative disc space narrowing and decreased s ignal in the disks at L4-5 and L5-S1. There are small posterior disc herniations at L5-S1 and L4-5 wi thout significant impingement on the spinal canal. The neural foramina are fairly well-maintained. Th ere is small posterior disc bulge at T11-12. Sacroiliac joints appear normal. There is no paraspinal mass. There is no focal bone destruction. IMPRESSION: Small posterior disc herniations at L4-5 and L5-S1. Disc herniation is decreased compared to old exam at L4-5. There is no change at L5-S1. Stable small posterior disc bulging at T11-12. No spinal steno sis. No fracture.
== END | disposition home or self-care (01) ==
LOC: RADMRIMAIN 16:21
PROVIDERS: ATTEND Family Medicine
DX: M51.27 Other intervertebral disc displacement, lumbosacral region (principal); G89.29 Other chronic pain
CPT/HCPCS: 72148

== ENCOUNTER → 2018-05-13 | Outpatient (CLI) | payer BC ==
--- NOTE | 2018-05-13 22:15 | XR ---
EXAMINATION TYPE: XR lumbar spine with bend/flex DATE OF EXAM: 05/13/2018 CLINICAL HISTORY: Low back pain, presurgical study TECHNIQUE: Frontal, lateral, dynamic flexion and extension lateral, and oblique images of the lumbar spine are obtained. COMPARISON: MRI lumbar spine January 25, 2018 FINDINGS: There are 5 lumbar type vertebral bodies identified. The lumbar spine redemonstrates sati sfactory alignment without evidence of acute fracture or dislocation. Vertebral body heights remain w ithin normal limits. There is persistent mild disc space narrowing L4-L5 level. There is persistent moderate to advanced disc space narrowing with endplate sclerosis L5-S1 level. The oblique images ap pear within normal limits. Dynamic images show no increased disc space narrowing or focal subluxation at any lumbar level. Cholecystectomy clips are seen in overlying soft tissue.. IMPRESSION: As above.
== END | disposition home or self-care (01) ==
LOC: RADXRMAIN 12:27
PROVIDERS: ATTEND Neurological Surgery
DX: M99.73 Connective tissue and disc stenosis of intervertebral foramina of lumbar region (principal)
CPT/HCPCS: 72114

== ENCOUNTER → 2018-07-13 | Outpatient (CLI) | payer BC ==
--- NOTE | 2018-07-19 10:07 | MM ---
Reason for exam: screening (asymptomatic). Last mammogram was performed 1 year ago. History: Patient is postmenopausal. Benign US breast aspiration single LT of the left breast, August 15, 2015. Took hormonal contraceptives for 4 years. Physical Findings: A clinical breast exam by your physician is recommended on an annual basis and results should be correlated with mammographic findings. MG 3D Screening Mammo W/Cad Bilateral CC and MLO view(s) were taken. Prior study comparison: June 30, 2017, bilateral MG 3d screening mammo w/cad. July 29, 2016, bilateral MG 3d screening mammo w/cad. The breast tissue is heterogeneously dense. This may lower the sensitivity of mammography. Previous mammotome biopsy in the left breast. Asymmetric breast tissue in the right medial breast, stable since 2016. There is no discrete abnormality. ASSESSMENT: Benign, BI-RAD 2 RECOMMENDATION: Routine screening mammogram of both breasts in 1 year.
== END | disposition home or self-care (01) ==
LOC: RADMAMWWP 14:20
PROVIDERS: ATTEND Family Medicine
DX: Z12.31 Encounter for screening mammogram for malignant neoplasm of breast (principal)
CPT/HCPCS: 77063; 77067

== ENCOUNTER → 2018-07-20 | Outpatient (CLI) | payer BC ==
--- NOTE | 2018-07-20 17:56 | CT ---
EXAMINATION TYPE: CT soft tissue neck w con DATE OF EXAM: 07/20/2018 5:49 PM COMPARISON: None HISTORY: Fall and hit head and is now having dizziness. Neck pain. CT DLP: 646.2 mGycm Automated exposure control for dose reduction was used. CONTRAST: CT scan of the neck is performed following with IV Contrast, patient injected with 100ml mL of Isovue 300. Axial images are obtained, coronal and sagittal reformatted images are reviewed. FINDINGS: The parotid glands are symmetric. Submandibular salivary glands are symmetric. There are multiple ant erior triangle cervical lymph nodes that measure up to 1.5 cm. There is normal contrast opacification of carotid arteries and jugular veins. There is bilateral contrast opacification of the vertebral ar teries. Epiglottis appears normal. There is no evidence of a pharyngeal mass. Trachea appears normal. There is no mediastinal adenopathy. Thyroid gland is symmetric. Cervical spine appears intact. Disc spaces are fairly normal. Tonsils and adenoids appear normal. IMPRESSION: There are few nonspecific anterior triangle cervical lymph nodes. Otherwise negative CT scan of the cervical soft tissues.
--- NOTE | 2018-07-20 17:59 | CT ---
EXAMINATION TYPE: CT brain w con DATE OF EXAM: 07/20/2018 COMPARISON: None HISTORY: Fall and hit head and is now having dizziness. CT DLP: 1117.2 mGycm Automated exposure control for dose reduction was used. CONTRAST: Performed with IV Contrast, patient injected with 100ml mL of Isovue 300. FINDINGS: Ventricles have normal size. There is no mass effect nor midline shift. There is no sign of intracran ial hemorrhage. The calvarium is intact. There is no pathologic enhancement. IMPRESSION: NEGATIVE CT SCAN OF THE BRAIN.
== END ==
LOC: RADCTMAIN 16:07
PROVIDERS: ATTEND Family Medicine
DX: S09.90XA Unspecified injury of head, initial encounter (principal)
CPT/HCPCS: 70491; 70460; Q9967

== ENCOUNTER → 2018-07-20 | Outpatient (CLI) | payer BC ==
--- NOTE | 2018-07-20 14:32 | XR ---
EXAMINATION TYPE: XR facial bones limited, XR skull complete DATE OF EXAM: 07/20/2018 HISTORY: Pain trauma TECHNIQUE: Three views of the facial bones are submitted. 4 views of the calvarium are also noted. FINDINGS: No evidence for displaced or depressed facial bone fracture. No air-fluid levels within th e sinuses. Soft tissues are radiographically intact. No evidence for calvarial fracture or lesion. IMPRESSION: No evidence for displaced or depressed facial bone fracture.
== END | disposition home or self-care (01) ==
LOC: RADXRMAIN 13:53
PROVIDERS: ATTEND Family Medicine
DX: S09.90XA Unspecified injury of head, initial encounter (principal)
CPT/HCPCS: 70140; 70260

== ENCOUNTER → 2018-11-11 | Outpatient (CLI) | payer BC ==
--- NOTE | 2018-11-11 15:59 | XR ---
EXAMINATION TYPE: XR thoracic spine complete DATE OF EXAM: 11/11/2018 COMPARISON: NONE HISTORY: Back pain TECHNIQUE: 3 views FINDINGS: Thoracic vertebra have normal alignment. Posterior elements are intact. There is no paraspi nal mass. There is no compression fracture. IMPRESSION: Negative thoracic spine exam. No change.
== END | disposition home or self-care (01) ==
LOC: RADXRMAIN 15:34
PROVIDERS: ATTEND Family Medicine
DX: M54.6 Pain in thoracic spine (principal)
CPT/HCPCS: 72072

== ENCOUNTER → 2019-07-09 | Outpatient (CLI) | payer BC ==
--- NOTE | 2019-07-09 12:57 | MM ---
Reason for exam: screening (asymptomatic). Last mammogram was performed 1 year ago. History: Patient is postmenopausal. Benign US breast aspiration single LT of the left breast, August 15, 2015. Took hormonal contraceptives for 4 years. Physical Findings: A clinical breast exam by your physician is recommended on an annual basis and results should be correlated with mammographic findings. MG 3D Screening Mammo W/Cad Bilateral CC and MLO view(s) were taken. Prior study comparison: July 13, 2018, bilateral MG 3d screening mammo w/cad. June 30, 2017, bilateral MG 3d screening mammo w/cad. There are scattered fibroglandular densities. No suspicious abnormality. Previous right upper inner quadrant focal asymmetry is no longer seen. Left biopsy marker noted. ASSESSMENT: Negative, BI-RAD 1 RECOMMENDATION: Routine screening mammogram of both breasts in 1 year.
== END ==
LOC: RADMAMWWP 09:03
PROVIDERS: ATTEND Family Medicine
DX: Z12.31 Encounter for screening mammogram for malignant neoplasm of breast (principal)
CPT/HCPCS: 77063; 77067

== ENCOUNTER → 2020-03-17 | Outpatient (CLI) | payer BC ==
[2020-03-17 16:49] LABS: C Reactive Protein <0.4 mg/dL (0.0-0.8); Rheumatoid Factor, Qnt 7 IU/mL (0-15); Uric Acid 3.8 mg/dL (2.9-7.7)
[2020-03-17 18:03] LABS: Streptolysin O Ab(ASO) 33 IU/mL (0-200)
[2020-03-17 19:10] LABS: Cyclic Citrull Pep IgG Unit <0.5 U/mL; Cyclic Citrullinated Pep IgG NEGATIVE (NEGATIVE)
== END | disposition home or self-care (01) ==
LOC: LABWHC1 08:49
PROVIDERS: ATTEND Family Medicine
DX: M19.90 Unspecified osteoarthritis, unspecified site (principal)
CPT/HCPCS: 36415; 84550; 85652; 86038; 86060; 86140; 86200; 86431

== ENCOUNTER → 2020-11-21 | Outpatient (CLI) | payer BC ==
--- NOTE | 2020-11-21 14:46 | MM ---
Reason for exam: screening (asymptomatic). Last mammogram was performed 1 year and 4 months ago. History: Patient is postmenopausal. Benign US breast aspiration single LT of the left breast, August 15, 2015. Took hormonal contraceptives for 4 years. Physical Findings: A clinical breast exam by your physician is recommended on an annual basis and results should be correlated with mammographic findings. MG 3D Screening Mammo W/Cad Bilateral CC and MLO view(s) were taken. Prior study comparison: July 09, 2019, bilateral MG 3d screening mammo w/cad. July 13, 2018, bilateral MG 3d screening mammo w/cad. There are scattered fibroglandular densities. Previous mammotome biopsy in the left breast. No significant changes when compared with prior studies. ASSESSMENT: Negative, BI-RAD 1 RECOMMENDATION: Routine screening mammogram of both breasts in 1 year.
== END | disposition home or self-care (01) ==
LOC: RADMAMWWP 13:38
PROVIDERS: ATTEND Family Medicine
DX: Z12.31 Encounter for screening mammogram for malignant neoplasm of breast (principal); Z78.0 Asymptomatic menopausal state
CPT/HCPCS: 77063; 77067

== ENCOUNTER → 2022-01-04 | Outpatient (CLI) | payer MEDICAID ==
--- NOTE | 2022-01-04 16:36 | MM ---
Reason for Exam: Screening (asymptomatic). Last mammogram was performed 1 year(s) and 2 month(s) ago. Patient History: Menarche at age 10. First Full-Term at age 26. Left ovary removed at age 35. Right ovary removed at age 35. Hysterectomy at age 29. Postmenopausal. Patient has history of breast feeding. Patient used Hormonal Contraceptives for 4 years. 08/15/2015, Benign Cyst Aspiration on the left side. Risk Values: Roxana 5 year model risk: 1.2%. NCI Lifetime model risk: 9.4%. Prior Study Comparison: 07/13/2018 Bilateral Screening Mammogram, [facility]. 07/09/2019 Bilateral Screening Mammogram, [facility]. 11/21/2020 Bilateral Screening Mammogram, [facility]. Tissue Density: The breast tissue is heterogeneously dense. This may lower the sensitivity of mammography. Findings: Analyzed By CAD. Microclip medial left breast from prior biopsy. No significant change from prior exams. Overall Assessment: Negative, BI-RAD 1 Management: Screening Mammogram of both breasts in 1 year. A clinical breast exam by your physician is recommended on an annual basis and results should be correlated with mammographic findings. Also, the patient should continue with monthly self breast exams. Electronically signed and approved by: Javier Arita M.D. Radiologist
[2022-01-04 17:20] LABS: Appearance,Urine Clear (Clear); Bilirubin,Urine Negative (Negative); Blood,Urine Small (Negative); Color,Urine Colorless; Glucose,Urine (UA) Negative (Negative); Ketones,Urine Negative (Negative); Leukocyte Esterase,Urine Negative (Negative); Nitrite,Urine Negative (Negative); Protein,Urine Negative (Negative); RBC,Urine 3 /hpf (0-5); Specific Gravity,Urine 1.009 (1.001-1.035); Squamous Epithelial Cell,Urine <1 /hpf (0-4); Urobilinogen,Urine <2.0 mg/dL (<2.0); WBC,Urine <1 /hpf (0-5)
== END | disposition home or self-care (01) ==
LOC: RADMAMWWP 12:11
PROVIDERS: ATTEND Internal Medicine
DX: Z12.31 Encounter for screening mammogram for malignant neoplasm of breast (principal); R35.0 Frequency of micturition
CPT/HCPCS: 77063; 77067; 81001

== ENCOUNTER → 2022-01-08 | Day surgery (SDC) | payer BC, MEDICAID ==
[2022-01-07 11:40] VITALS: BMI 23.6
[~2022-01-08] MED LIST changes: +LIDOCAINE 1% (10MG/ML) FOR IV START INTRADERMA PRN; +LIDOCAINE 2% INJ 20 MG/ML (2 ML VIAL) ONE; +PROPOFOL 10 MG/ML 20 ML VIAL IV ONE
[2022-01-08 12:16] VITALS: TEMP 97.6
--- NOTE | 2022-01-08 13:19 | P.PCN ---
Date of Procedure: 01/08/22 Procedure(s) Performed: BRIEF HISTORY: Patient is a 51-year-old pleasant female scheduled for an elective colonoscopy as a part of value should prior history of colon polyps. Last colonoscopy was 3 years ago. PROCEDURE PERFORMED: Colonoscopy with snare polypectomy. PREOPERATIVE DIAGNOSIS: History of colon polyps. IV sedation per Anesthesia. PROCEDURE: After informed consent was obtained, the patient, was brought into the endoscopy unit. IV sedation was administered by Anesthesia under continuous monitoring. Digital rectal examination was normal. Initially the Olympus CF-160 flexible video colonoscope was then inserted in the rectum, gradually advanced into the cecum without any difficulty. Careful examination was performed as the scope was gradually being withdrawn. Ileocecal valve and the appendiceal orifice were visualized and appeared normal. Prep was excellent. Mucosa of the cecum, appeared normal. Ascending colon there was a 1 cm broad-based polyp removed by snare polypectomy. The hepatic flexure there was a 3 mm polyp removed by snare polypectomy. In the transverse colon there was a 5 mm sessile polyp removed by snare polypectomy and in the descending colon there was another 3 mm polyp removed by snare polypectomy. Rest of the ascending colon, transverse colon, descending colon, sigmoid colon, and rectum appeared normal. Retroflexion was performed in the rectum and no lesions were seen. The patient tolerated the procedure well. IMPRESSION: 1 cm ascending colon polyp status post polypectomy 3 mm hepatic flexure polyp status post polypectomy 5 mm transverse colon polyp status post polypectomy 3 mm descending colon polyp status post snare polypectomy RECOMMENDATIONS: Findings of this examination were discussed with the patient as well as her family. She was advised to follow with the biopsy results. If the biopsy reveals adenoma she can have a repeat coloscopy in 3 years..
[2022-01-08 13:27] VITALS: RESP 14
[2022-01-08 13:37] VITALS: BP 109/71; PULSE 55
== END ==
LOC: ORWHC2ENDO 11:08
PROVIDERS: ATTEND Internal Medicine Gastroenterology
DX: Z12.11 Encounter for screening for malignant neoplasm of colon (principal); D12.3 Benign neoplasm of transverse colon; D12.2 Benign neoplasm of ascending colon; Z86.010 Personal history of colon polyps; M79.7 Fibromyalgia; Z86.718 Personal history of other venous thrombosis and embolism; Z79.899 Other long term (current) drug therapy; Z98.890 Other specified postprocedural states
CPT/HCPCS: 88305; 45385; J2704; J2001

== ENCOUNTER → 2022-02-22 | Outpatient (CLI) | payer MEDICAID ==
--- NOTE | 2022-02-22 14:25 | CT ---
EXAMINATION TYPE: CT renal stones wo con DATE OF EXAM: 02/22/2022 COMPARISON: None HISTORY: 51-year-old female Right sided flank pain and hematuria x1 month ago. TECHNIQUE: Contiguous axial scanning of the abdomen and pelvis without IV contrast. Coronal and sagit madelyn reconstructions performed. CT DLP: 758 mGycm Automated exposure control for dose reduction was used. FINDINGS: Heart normal size without pericardial effusion. Some minimal subpleural peripheral groundglass in the lower lungs nonspecific, possibly related to atelectasis or a prior inflammatory process. Strands of atelectasis in the lower lungs. Postsurgical changes of Kitty fundoplication. There is a 7 mm hypodensity posterior right hepatic lobe and additional small 8 mm hypodensity left l iver lobe. Both are too small for accurate CT characterization, likely small cysts. No biliary ductal dilatation. Cholecystectomy clips. Liver enlarged at 20.9 cm. Otherwise, noncontrast appearance of the adrenal glands, spleen, and pancreas show no gross abnormali ty. Kidneys show no evidence of hydronephrosis or renal calculus. No contour deforming lesion is identifi ed. No dilated small bowel, free fluid, or free air. No mesenteric or retroperitoneal lymphadenopathy. Some surgical clips within the anterior lower abdominal pelvic junction. Moderate stool burden. There is sigmoid diverticulosis. No pericolonic inflammatory change. Mild circumferential bladder wall thickening probably chronic for the patient. Correlate to exclude c ystitis. Pelvic phleboliths. Uterus surgically absent. Unable to clearly delineate either ovary due t o bowel gas in the pelvis. No abnormal fluid collection the pelvis or pelvic lymphadenopathy seen. Bones moderate to advanced degenerative disc disease L4-L5 and L5-S1. Also it T11-T12. Facet arthropa thy lower lumbar spine. IMPRESSION: 1. NO NEPHROLITHIASIS OR HYDRONEPHROSIS. 2. STATUS POST KITTY FUNDOPLICATION AND CHOLECYSTECTOMY. 3. SIGMOID DIVERTICULOSIS WITHOUT EVIDENCE FOR ACUTE DIVERTICULITIS. 4. THERE APPEARS TO HAVE BEEN PROGRESSION IN THE DEGENERATIVE CHANGES WITHIN THE LOWER LUMBAR SPINE C OMPARED TO 01/25/2018.
== END | disposition home or self-care (01) ==
LOC: RADCTMAIN 12:11
PROVIDERS: ATTEND Internal Medicine
DX: N20.0 Calculus of kidney (principal); K57.30 Diverticulosis of large intestine without perforation or abscess without bleeding
CPT/HCPCS: 74150

== ENCOUNTER → 2022-04-06 | Outpatient (CLI) | payer MEDICAID ==
[2022-04-06 14:43] LABS: Basophils # (A) 0.07 X 10*3/uL (0.00-0.10); Basophils % (A) 0.9 %; Eosinophils # (A) 0.12 X 10*3/uL (0.04-0.35); Eosinophils % (A) 1.6 %; HCT 41.4 % (37.2-46.3); HGB 13.2 g/dL (12.0-15.0); Immature Grans, Automated 0.3 %; Lymphocytes # (A) 1.47 X 10*3/uL (0.90-5.00); Lymphocytes % (A) 19.6 %; MCH 30.2 pg (27.0-32.0); MCHC 31.9 g/dL (32.0-37.0); MCV 94.7 fL (80.0-97.0); Mean Platelet Volume 10.4 fL (9.5-12.2); Monocytes # (A) 0.61 X 10*3/uL (0.20-1.00); Monocytes % (A) 8.1 %; NRBC Per 100 WBC 0 /100 WBCS (0.0-0.0); Neutrophils # (A) 5.21 X 10*3/uL (1.80-7.70); Neutrophils % (A) 69.5 %; Platelet Count 397 X 10*3/uL (140-440); RBC 4.37 X 10*6/uL (4.10-5.20); RDW 12.7 % (11.5-14.5)
[2022-04-06 15:08] LABS: ALT 18 U/L (8-44); AST 23 U/L (13-35); African American GFR (CKD) 75.4 (60.0-200.0); Albumin 4.6 g/dL (3.8-4.9); Albumin/Globulin Ratio 1.85 (1.60-3.17); Alkaline Phosphatase 94 U/L (41-126); BUN/Creat Ratio 12.22 Ratio (12.00-20.00); Blood Urea Nitrogen 12.1 mg/dL (9.0-27.0); Calcium 10.2 mg/dL (8.7-10.3); Carbon Dioxide 26.2 mmol/L (20.0-27.5); Chloride 101 mmol/L (96-109); Chol/HDL Ratio 2.15 Ratio; Globulin 2.5 g/dL (1.6-3.3); Glucose 104 mg/dL (70-110); LDL Cholesterol,Calculated 86.5 mg/dL (0.0-131.0); Non-African American GFR(CKD) 65.1 (60.0-200.0); Potassium 4.3 mmol/L (3.5-5.5); Sodium 136 mmol/L (135-145); Total Protein 7.1 g/dL (6.2-8.2)
[2022-04-06 15:58] LABS: Appearance,Urine Clear (Clear); Bilirubin,Urine Negative (Negative); Blood,Urine Trace (Negative); Color,Urine Yellow (Yellow); Ketones,Urine Trace mg/dL (Negative); Nitrite,Urine Negative (Negative); PH, Urine 5.5 (5.0-8.0); Specific Gravity,Urine 1.023 (1.001-1.030); Urobilinogen,Urine 0.2 (0.2,1.0)
[2022-04-06 16:03] LABS: Bacteria,Urine None Seen /HPF (None Seen)
== END | disposition home or self-care (01) ==
LOC: LABWHC1 09:04
PROVIDERS: ATTEND Internal Medicine
DX: Z00.00 Encounter for general adult medical examination without abnormal findings (principal); N20.0 Calculus of kidney; G62.9 Polyneuropathy, unspecified; R68.82 Decreased libido
CPT/HCPCS: 36415; 80053; 80061; 81001; 82607; 82746; 83036; 83970; 84403; 84443; 85025

== ENCOUNTER → 2022-06-30 | Outpatient (CLI) | payer MEDICAID ==
--- NOTE | 2022-06-30 12:59 | US ---
EXAMINATION TYPE: US venous doppler duplex LE LT DATE OF EXAM: 06/30/2022 12:23 PM COMPARISON: NONE CLINICAL HISTORY: I80.02 Thrombophlebitis of superficial veins of lower left l. Lump left calf area. SIDE PERFORMED: Left TECHNIQUE: The lower extremity deep venous system is examined utilizing real time linear array sonog carmela with graded compression, doppler sonography and color-flow sonography. VESSELS IMAGED: Common Femoral Vein Deep Femoral Vein Greater Saphenous Vein * Femoral Vein Popliteal Vein Small Saphenous Vein * Proximal Calf Veins (* superficial vessels) Left Leg: Negative for DVT IMPRESSION: No evidence for DVT at this time.
== END | disposition home or self-care (01) ==
LOC: RADUSWWP 11:42
PROVIDERS: ATTEND Internal Medicine
DX: I80.02 Phlebitis and thrombophlebitis of superficial vessels of left lower extremity (principal)

== ENCOUNTER → 2023-02-07 | Outpatient (CLI) | payer OTHER ==
--- NOTE | 2023-02-07 16:03 | XR ---
EXAMINATION TYPE: XR hand complete LT DATE OF EXAM: 02/07/2023 CLINICAL HISTORY: pain TECHNIQUE: Frontal, lateral and oblique images of the left hand are obtained. COMPARISON: None. FINDINGS: There is no acute fracture/dislocation evident. Degenerative changes about the first carpo metacarpal joint with mild chronic bony fragmentation seen. The overlying soft tissue appears unremar kable. IMPRESSION: There is no acute fracture or dislocation. ICD 10 NO FRACTURE, INITIAL EVALUATION
== END | disposition home or self-care (01) ==
LOC: RADXRMAIN 15:45
PROVIDERS: ATTEND Emergency Medicine
DX: S67.195A Crushing injury of left ring finger, initial encounter (principal); X58.XXXA Exposure to other specified factors, initial encounter

== ENCOUNTER → 2023-02-10 | Outpatient (CLI) | payer MEDICAID ==
--- NOTE | 2023-02-10 11:41 | MM ---
Reason for Exam: Screening (asymptomatic). Last mammogram was performed 1 year(s) and 1 month(s) ago. Patient History: Menarche at age 10. First Full-Term at age 26. Left ovary removed at age 35. Right ovary removed at age 35. Hysterectomy at age 29. Postmenopausal. Patient has history of breast feeding. Patient used Hormonal Contraceptives for 4 years. 08/15/2015, Benign Cyst Aspiration on the left side. Risk Values: Roxana 5 year model risk: 1.3%. NCI Lifetime model risk: 9.3%. Prior Study Comparison: 07/29/2016 Bilateral Screening Mammogram, [facility]. 06/30/2017 Bilateral Screening Mammogram, [facility]. 07/13/2018 Bilateral Screening Mammogram, [facility]. 07/09/2019 Bilateral Screening Mammogram, [facility]. 11/21/2020 Bilateral Screening Mammogram, [facility]. 01/04/2022 Bilateral MG 3D screening mammo w/cad, [facility]. Tissue Density: There are scattered fibroglandular densities. Findings: Analyzed By CAD. Microclip medial left breast from prior biopsy. There is no suspicious group of microcalcifications or new suspicious mass in either breast. Overall Assessment: Negative, BI-RAD 1 Management: Screening Mammogram of both breasts in 1 year. . Patient should continue monthly self-breast exams. A clinical breast exam by your physician is recommended on an annual basis. This exam should not preclude additional follow-up of suspicious palpable abnormalities. Note on Roxana scores and lifetime risk: 1. A Roxana score greater than 3% is considered moderate risk. If this is the case, consider specialist referral to assess eligibility for a risk reducing agent. 2. If overall lifetime risk for the development of breast cancer is 20% or higher, the patient may qualify for future screening with alternating mammogram and breast MRI. Electronically signed and approved by: Javier Arita M.D. Radiologist
== END ==
LOC: RADMAMWWP 10:34
PROVIDERS: ATTEND Internal Medicine
DX: Z12.31 Encounter for screening mammogram for malignant neoplasm of breast (principal); Z78.0 Asymptomatic menopausal state
CPT/HCPCS: 77063; 77067

== ENCOUNTER → 2023-02-11 | Outpatient (CLI) | payer MEDICAID ==
[2023-02-11 15:26] LABS: Appearance,Urine Clear (Clear); Bilirubin,Urine Negative (Negative); Blood,Urine Small (Negative); Color,Urine Yellow (Yellow); Ketones,Urine Negative (Negative); Nitrite,Urine Negative (Negative); PH, Urine 5.5; Specific Gravity,Urine 1.021 (1.001-1.030); Urobilinogen,Urine 0.2 E.U./DL
[2023-02-11 15:34] LABS: Bacteria,Urine None Seen (None Seen)
[2023-02-11 17:14] LABS: Basophils # (A) 0.08 X 10*3/uL (0.00-0.10); Basophils % (A) 1.2 %; Eosinophils # (A) 0.12 X 10*3/uL (0.04-0.35); Eosinophils % (A) 1.9 %; HCT 42.5 % (37.2-46.3); HGB 13.4 d/dL (12.0-15.0); Lymphocytes # (A) 1.45 X 10*3/uL (0.90-5.00); Lymphocytes % (A) 22.5 %; MCH 30.2 pg (27.0-32.0); MCHC 31.5 d/dL (32.0-37.0); MCV 95.7 FL (80.0-97.0); Mean Platelet Volume 10.8 FL (9.5-12.2); Monocytes # (A) 0.47 X 10*3/uL (0.20-1.00); Monocytes % (A) 7.3 %; NRBC Per 100 WBC 0 X 10*3/uL (0.00-0.01); Neutrophils # (A) 4.31 X 10*3/uL (1.80-7.70); Neutrophils % (A) 66.8 %; Platelet Count 390 X 10*3/uL (140-440); RBC 4.44 X 10*6/uL (4.10-5.20); RDW 13.2 % (11.5-14.5); WBC 6.45 X 10*3/uL (4.50-10.00)
[2023-02-11 18:39] LABS: ALT 16 U/L (8-44); AST 16 U/L (13-35); Albumin 4.4 d/dL (3.8-4.9); Albumin/Globulin Ratio 1.83 Ratio (1.60-3.17); Alkaline Phosphatase 103 U/L (41-126); Calcium 10.2 mg/dL (8.7-10.3); Carbon Dioxide 22.9 mmol/L (21.6-31.8); Chloride 107 mmol/L (96-109); Globulin 2.4 d/dL (1.6-3.3); Glucose 98 mg/dL (70-110); LDL Cholesterol,Calculated 117.5 mg/dL (0.0-131.0); Potassium 4.6 mmol/L (3.5-5.5); Sodium 140 mmol/L (135-145); Total Bilirubin 0.2 mg/dL (0.3-1.2); Total Protein 6.8 d/dL (6.2-8.2); VLDL Calculation 16.48 mg/dL (5.00-40.00)
== END | disposition home or self-care (01) ==
LOC: LABWHC1 09:54
PROVIDERS: ATTEND Internal Medicine
DX: Z00.00 Encounter for general adult medical examination without abnormal findings (principal); D47.2 Monoclonal gammopathy; G62.9 Polyneuropathy, unspecified
CPT/HCPCS: 36415; 80053; 80061; 81001; 82306; 83036; 84443; 85025

== ENCOUNTER → 2023-04-21 | Outpatient (CLI) | payer MEDICAID ==
--- NOTE | 2023-04-21 12:32 | XR ---
3 views right knee. DATE: 04/21/2023. COMPARISON: None available. MEDICAL HISTORY: Right knee pain. IMPRESSION: There is mild osteoarthritis with joint space narrowing and spurring in the medial compartment. The j oint spaces otherwise appear preserved. No effusions are seen. There is no fracture, subluxation or dislocation.
== END | disposition home or self-care (01) ==
LOC: RADXRMAIN 11:43
PROVIDERS: ATTEND Internal Medicine
DX: M17.11 Unilateral primary osteoarthritis, right knee (principal); M25.761 Osteophyte, right knee

== ENCOUNTER → 2023-06-13 | Outpatient (CLI) | payer MEDICAID ==
[2023-06-13 16:52] LABS: Basophils # (A) 0.09 X 10*3/uL (0.00-0.10); Basophils % (A) 1.2 %; Eosinophils # (A) 0.06 X 10*3/uL (0.04-0.35); Eosinophils % (A) 0.8 %; HCT 42.9 % (37.2-46.3); HGB 13.7 g/dL (12.0-15.0); Lymphocytes # (A) 1.11 X 10*3/uL (0.90-5.00); Lymphocytes % (A) 15.4 %; MCHC 31.9 g/dL (32.0-37.0); MCV 93.9 FL (80.0-97.0); Mean Platelet Volume 10.3 FL (9.5-12.2); Monocytes % (A) 8.3 %; NRBC Per 100 WBC 0 X 10*3/uL (0.00-0.01); Neutrophils # (A) 5.34 X 10*3/uL (1.80-7.70); Platelet Count 368 X 10*3/uL (140-440); RBC 4.57 X 10*6/uL (4.10-5.20); RDW 12.9 % (11.5-14.5); WBC 7.22 X 10*3/uL (4.50-10.00)
[2023-06-13 17:44] LABS: Erythrocyte Sedimentation Rate 14 mm/Hr (0-30)
[2023-06-13 18:43] LABS: C Reactive Protein <0.30 mg/dL (0.00-0.80); Uric Acid 3.5 mg/dL (2.9-7.7)
== END | disposition home or self-care (01) ==
LOC: LABWHC1 08:45
PROVIDERS: ATTEND Internal Medicine
DX: M25.561 Pain in right knee (principal)
CPT/HCPCS: 36415; 84550; 85025; 85652; 86038; 86140

== ENCOUNTER → 2023-09-22 | Outpatient (CLI) | payer MEDICAID ==
--- NOTE | 2023-09-23 09:43 | XR ---
EXAMINATION TYPE: XR foot complete LT DATE OF EXAM: 09/22/2023 Comparison: 10/21/2014 Clinical History: 52-year-old female M79.672 PAIN IN LEFT FOOT Findings: There is [id number] degenerative change at the first MTP joint with a prominent bunion formatio n. Small plantar heel spur is noted. No acute fracture, subluxation, or dislocation. Impression: [id number] first MTP joint OA with prominent bunion formation. Small plantar heel spur.
== END | disposition home or self-care (01) ==
LOC: RADXRMAIN 11:12
PROVIDERS: ATTEND Internal Medicine
DX: M19.072 Primary osteoarthritis, left ankle and foot (principal); M77.32 Calcaneal spur, left foot; M21.612 Bunion of left foot

== ENCOUNTER → 2024-01-18 | Outpatient (CLI) | payer MEDICAID ==
--- NOTE | 2024-01-18 14:27 | CT ---
EXAMINATION TYPE: CT abdomen pelvis wo con DATE OF EXAM: 01/18/2024 COMPARISON: 02/22/2022 INDICATION: Bilateral flank pain, more severe on right side x 5 days DLP: 333.7 mGycm, Automated exposure control for dose reduction was used. CONTRAST: 0 mL of Isovue 300. Study performed without Oral Contrast TECHNIQUE: Axial images were obtained from above the diaphragm to the pubic rami in the axial plane a t 5 mm thick sections. Reconstructed images are reviewed on the computer in the coronal plane. FINDINGS: Limited CT sections are obtained the lung bases. The lung bases are clear. CT ABDOMEN: Liver: Normal Spleen: Normal Pancreas: Normal Adrenal glands: The adrenal glands are normal. Gallbladder: Surgically absent Kidneys: No masses are evident. No hydronephrosis is present. No cysts are present. No renal stone s are identified. Aorta: Vascular calcification is within the aorta. Inferior vena cava: Normal. CT PELVIS: Within the right hemipelvis near the right ureterovesical junction there is a 0.3 cm calci fication. No significant hydronephrosis or hydroureter is evident however. Differential diagnosis wou ld include a ureteral stone versus phlebolith. Loops of bowel within the abdomen and pelvis are normal. There are loops of bowel which are incom pletely distended or lack oral contrast limiting their evaluation. Appendix: Normal as visualized. Urinary bladder: Normal. Genitourinary structures: Uterus and ovaries are identified. Osseous structures: No suspicious lytic or sclerotic lesions. IMPRESSION: 1. There may be a nonobstructing distal right ureteral stone. Differential diagnosis includes phlebo lith. 2. No suspicious acute abnormalities otherwise evident
== END | disposition home or self-care (01) ==
LOC: RADCTMAIN 13:56
PROVIDERS: ATTEND Internal Medicine
DX: N20.0 Calculus of kidney (principal); I87.8 Other specified disorders of veins
CPT/HCPCS: 74176

== ENCOUNTER → 2024-02-08 | Outpatient (CLI) | payer MEDICAID ==
--- NOTE | 2024-02-08 11:51 | XR ---
EXAMINATION TYPE: XR KUB DATE OF EXAM: 02/08/2024 11:40 AM CLINICAL INDICATION:Female, 53 years old with history of N20.0 CALCULUS OF KIDNEY; [facility] COMPARISON: CT 02/22/2022 01/18/2024 TECHNIQUE: One radiographic view of the abdomen was obtained. FINDINGS: The bowel gas pattern is nonspecific without dilated loops of small or large bowel. . Fecal material and gas are demonstrated throughout the colon and rectum. There is no evidence for organomegaly or pneumoperitoneum. The osseous structures are intact. No def initive calculi visualized. Oblique phleboliths are thought to be present. Prior previous calculus on CT of the distal right ureteral vesicular junction may be within pelvic phleboliths and not partiall y obstructing stone. IMPRESSION: 1. No evidence for renal calculus. Prior previous calculus on CT at the distal right ureteral vesicu lar junction may actually have been a pelvic phlebolith this is been present since [address] urogram for definitive characterization of this calculus in the right renal collecting system. 2. Nonspecific bowel gas pattern without radiographic evidence for acute process.
== END | disposition home or self-care (01) ==
LOC: RADXRWHC 11:29
PROVIDERS: ATTEND Internal Medicine
DX: N20.0 Calculus of kidney (principal)
CPT/HCPCS: 74018

== ENCOUNTER → 2024-07-26 | Outpatient (CLI) | payer MEDICAID ==
[2024-07-26 10:33] LABS: Basophils # (A) 0.09 X 10*3/uL (0.00-0.10); Basophils % (A) 1.7 %; Eosinophils # (A) 0.21 X 10*3/uL (0.04-0.35); HCT 42.9 % (37.2-46.3); HGB 13.3 g/dL (12.0-15.0); Lymphocytes # (A) 1.19 X 10*3/uL (0.90-5.00); Lymphocytes % (A) 22.8 %; MCV 93.7 FL (80.0-97.0); Mean Platelet Volume 9.7 FL (9.5-12.2); Monocytes # (A) 0.49 X 10*3/uL (0.20-1.00); Monocytes % (A) 9.4 %; NRBC Per 100 WBC 0 X 10*3/uL (0.00-0.01); Neutrophils # (A) 3.22 X 10*3/uL (1.80-7.70); Neutrophils % (A) 61.9 %; Platelet Count 357 X 10*3/uL (140-440); RBC 4.58 X 10*6/uL (4.10-5.20); WBC 5.21 X 10*3/uL (4.50-10.00)
[2024-07-26 10:57] LABS: % Iron Saturation 12.73 (12.00-45.00); ALT 15 U/L (8-44); AST 17 U/L (13-35); Albumin 4.1 g/dL (3.8-4.9); Albumin/Globulin Ratio 1.78 Ratio (1.60-3.17); Alkaline Phosphatase 106 U/L (41-126); Blood Urea Nitrogen 11.3 mg/dL (9.0-27.0); Calcium 9.7 mg/dL (8.7-10.3); Carbon Dioxide 25.3 mmol/L (21.6-31.8); Chloride 107 mmol/L (96-109); Ferritin 37.3 ng/mL (10.0-291.0); Globulin 2.3 g/dL (1.6-3.3); Glucose 100 mg/dL (70-110); Iron 48 UG/DL (50-170); LDL Cholesterol,Calculated 80.2 mg/dL (0.0-131.0); Potassium 4.6 mmol/L (3.5-5.5); Sodium 140 mmol/L (135-145); Total Bilirubin <0.2 mg/dL (0.3-1.2); Total Iron Binding Capacity 377 UG/DL (228-460); Total Protein 6.4 g/dL (6.2-8.2)
[2024-07-26 12:03] LABS: Appearance,Urine Clear (Clear); Bacteria,Urine None Seen (None Seen); Bilirubin,Urine Negative (Negative); Blood,Urine Small (Negative); Color,Urine Yellow (Yellow); Ketones,Urine Negative (Negative); Nitrite,Urine Negative (Negative); Specific Gravity,Urine 1.025 (1.001-1.030); Urobilinogen,Urine 0.2 E.U./DL
[2024-07-26 13:39] LABS: Free Kappa Lt Chain Qnt, Serum 3.2 mg/dL (0.33-1.94); Free Lambda Lt Chain Qnt, Seru 1.53 mg/dL (0.57-2.63)
--- NOTE | 2024-07-26 15:22 | MM ---
Reason for Exam: Screening (asymptomatic). Last mammogram was performed 1 year(s) and 5 month(s) ago. Patient History: Menarche at age 10. First Full-Term at age 26. Left ovary removed at age 35. Right ovary removed at age 35. Hysterectomy at age 29. Postmenopausal. Patient has history of breast feeding. [employer]. Patient used Hormonal Contraceptives for 4 years. 08/15/2015, Benign Cyst Aspiration on the left side. Risk Values: Roxana 5 year model risk: 1.3%. NCI Lifetime model risk: 9.1%. Prior Study Comparison: 11/21/2020 Bilateral Screening Mammogram, [facility]. 01/04/2022 Bilateral MG 3D screening mammo w/cad, [facility]. 02/10/2023 Bilateral MG 3D screening mammo w/cad, [facility]. Tissue Density: There are scattered areas of fibroglandular density. Findings: Analyzed By CAD. Microclip left breast from prior biopsy. There is no suspicious group of microcalcifications or new suspicious mass in either breast. Overall Assessment: Negative, BI-RAD 1 Management: Screening Mammogram of both breasts in 1 year. Patient should continue monthly self-breast exams. A clinical breast exam by your physician is recommended on an annual basis. This exam should not preclude additional follow-up of suspicious palpable abnormalities. Note on Roxana scores and lifetime risk: 1. A Roxana score greater than 3% is considered moderate risk. If this is the case, consider specialist referral to assess eligibility for a risk reducing agent. 2. If overall lifetime risk for the development of breast cancer is 20% or higher, the patient may qualify for future screening with alternating mammogram and breast MRI. [facility], , 07/26/2024 3:19 PM. Electronically signed and approved by: Javier Arita M.D. Radiologist
== END | disposition home or self-care (01) ==
LOC: RADMAMWWP 07:22
PROVIDERS: ATTEND Internal Medicine
DX: Z12.31 Encounter for screening mammogram for malignant neoplasm of breast (principal); Z00.00 Encounter for general adult medical examination without abnormal findings; N20.0 Calculus of kidney; D47.2 Monoclonal gammopathy; M85.851 Other specified disorders of bone density and structure, right thigh; G62.9 Polyneuropathy, unspecified; R31.9 Hematuria, unspecified; Z90.722 Acquired absence of ovaries, bilateral; Z78.0 Asymptomatic menopausal state; R92.323 Mammographic fibroglandular density, bilateral breasts
CPT/HCPCS: 77063; 77067; 80053; 80061; 81001; 82306; 82607; 82728; 82746; 83036; 83540; 83550; 83883; 83970; 84166; 84443; 85025

== ENCOUNTER → 2024-08-15 | Outpatient (CLI) | payer MEDICAID ==
--- NOTE | 2024-08-15 17:39 | US ---
EXAMINATION TYPE: US kidneys/renal and bladder DATE OF EXAM: 08/15/2024 COMPARISON: CT: 01/18/24, and 02/22/22 CLINICAL INDICATION: Female, 53 years old with history of R31.29 MCROSCOPIC HEMATURIA; microscopic he maturia TECHNIQUE: Grayscale imaging of the bilateral kidneys and urinary bladder: FINDINGS: EXAM MEASUREMENTS: Right Kidney: 12.0 x 4.9 x 3.8 cm Left Kidney: 11.3 x 5.1 x 5.9 cm Right Kidney: dilated renal pelvis seen most bilateral extrarenal pelvis no evidence for hydronephros is. Left Kidney: No hydronephrosis or masses seen Bladder: wnl Bilateral Jets seen: Yes There is no evidence for hydronephrosis at this point in time. No nephrolithiasis is seen. No stephanie s are identified. The urinary bladder is anechoic. IMPRESSION: 1. Mild dilation of the right collecting system correlate for obstructive uropathy. Findings similar to prior CT urogram. 2. No evidence for left hydronephrosis or calculus. [facility], , 08/15/2024 5:36 PM
== END | disposition home or self-care (01) ==
LOC: RADUSWWP 16:18
PROVIDERS: ATTEND Internal Medicine
DX: R31.29 Other microscopic hematuria (principal); N13.8 Other obstructive and reflux uropathy
CPT/HCPCS: 76770

== ENCOUNTER → 2024-08-21 | Outpatient (CLI) | payer MEDICAID ==
--- NOTE | 2024-08-21 12:49 | XR ---
EXAMINATION TYPE: XR chest 2V DATE OF EXAM: 08/21/2024 12:38 PM COMPARISON: Chest CT May 27, 2015 CLINICAL INDICATION: Female, 53 years old with history of S40.021D, shortness of breath and cough for 5 days. TECHNIQUE: Frontal and lateral views of the chest are obtained. FINDINGS: There is no focal air space opacity, pleural effusion, or pneumothorax seen. The cardiac silhouette size is upper limits of normal. The osseous structures are intact. IMPRESSION: No acute pulmonary infiltrate. [facility], , 08/21/2024 12:47 PM
== END | disposition home or self-care (01) ==
LOC: RADXRMAIN 12:21
PROVIDERS: ATTEND Internal Medicine
DX: R09.89 Other specified symptoms and signs involving the circulatory and respiratory systems (principal)
CPT/HCPCS: 71046

== ENCOUNTER 2024-08-22 09:32 | Observation (INO) | payer MEDICAID ==
--- NOTE | 2024-08-22 09:47 | ED ---
SOB HPI - General Chief Complaint: Shortness of Breath Stated Complaint: SOB,Back pain Time Seen by Provider: 08/22/24 09:43 Source: patient, RN notes reviewed, old records reviewed Mode of arrival: ambulatory Limitations: no limitations - History of Present Illness Initial Comments: This is a 53 female to the ER for evaluation of severe shortness of breath cough congestion chest tightness, chest pain, no fevers patient was sent in by primary care for increased work of breathing worsening shortness of breath the last few days positive cough positive congestion positive chest pain MD Complaint: shortness of breath, cough, "asthma attack", anxiety -: days(s) Severity: severe Severity scale (1-10): 10 Consistency: constant Improves With: nothing Worsens With: nothing, exertion Known History Of: COPD - Related Data Home Medications Medication Instructions Recorded Confirmed Gabapentin [Neurontin] 800 mg PO TID 04/24/14 08/22/24 Pyridostigmine [Mestinon] 60 mg PO TID 04/24/14 08/22/24 SUMAtriptan succinate [Imitrex] 50 mg PO BID PRN 04/24/14 08/22/24 tiZANidine HCL [Zanaflex] 4 mg PO BID PRN 07/09/14 08/22/24 Previous Rx's Medication Instructions Recorded Losartan [Cozaar] 50 mg PO DAILY #90 tab 08/24/24 Pantoprazole [Protonix] 40 mg PO AC-BRKFST #30 tab 08/24/24 predniSONE [Deltasone] 20 mg PO DAILY #22 tab 08/24/24 Allergies Allergy/AdvReac Type Severity Reaction Status Date / Time adhesive Allergy Rash/Hives Verified 08/22/24 11:38 adhesive tape Allergy Rash/Hives Verified 08/22/24 11:38 amoxicillin [Amoxicillin] Allergy Rash/Hives Verified 08/22/24 11:38 bupropion HCl Allergy Rash/Hives, Verified 08/22/24 11:38 [From Wellbutrin] DYSPNEA clindamycin HCl Allergy Rash/Hives Verified 08/22/24 11:38 [From Cleocin] clindamycin palmitate HCl Allergy Rash/Hives Verified 08/22/24 11:38 [From Cleocin] clindamycin phosphate Allergy Rash/Hives Verified 08/22/24 11:38 [From Cleocin] codeine Allergy Nausea & Verified 08/22/24 11:38 Vomiting,HIVES doxycycline Allergy Rash/Hives, Verified 08/22/24 11:38 SOB erythromycin base Allergy Abdominal Verified 08/22/24 11:38 [Erythromycin Base] Pain estrogens, conjugated Allergy Itching Verified 08/22/24 11:38 [From Premarin] etodolac [From Lodine] Allergy Rash/Hives Verified 08/22/24 11:38 pregabalin [From Lyrica] Allergy BLURRED Verified 08/22/24 11:38 VISION AND HAND NUMBNESS sulfamethoxazole Allergy Rash/Hives Verified 08/22/24 11:38 [From Bactrim] topiramate [From Topamax] Allergy HAND Verified 08/22/24 11:38 NUMBNESS trimethoprim [From Bactrim] Allergy Rash/Hives Verified 08/22/24 11:38 Review of Systems ROS Statement: Those systems with pertinent positive or pertinent negative responses have been documented in the HPI. ROS Other: All systems not noted in ROS Statement are negative. Past Medical History Past Medical History: Deep Vein Thrombosis (DVT), Fibromyalgia, Osteoarthritis (OA), Supraventricular Tachycardia (SVT) Additional Past Medical History / Comment(s): HX KIDNEY STONES, TMJ, MIGRAINES ,VARICOSE VEINS,ULCERS, IBS, MYASTHENIA GRAVIS, Herniated Discs. History of Any Multi-Drug Resistant Organisms: None Reported Past Surgical History: Cardiac Ablation, Section, Cholecystectomy, Hysterectomy, Tubal Ligation Additional Past Surgical History / Comment(s): VICKY.VARICOSE VEIN STRIPPING,vicky OOPHORECTOMY,KITTY FUNDOPLICATION, PAIN PROCEDURE. Past Anesthesia/Blood Transfusion Reactions: Motion Sickness Past Psychological History: No Psychological Hx Reported Past Alcohol Use History: Occasional - Past Family History Mother Family Medical History: Cancer General Exam Limitations: no limitations General appearance: alert, in no apparent distress, anxious, in distress Head exam: Present: atraumatic, normocephalic, normal inspection Eye exam: Present: normal appearance, PERRL, EOMI. Absent: scleral icterus, conjunctival injection, periorbital swelling ENT exam: Present: normal exam, mucous membranes moist Neck exam: Present: normal inspection. Absent: tenderness, meningismus, lymphadenopathy Respiratory exam: Present: respiratory distress, wheezes, accessory muscle use, decreased breath sounds, prolonged expiratory. Absent: rales, rhonchi, stridor Cardiovascular Exam: Present: regular rate, normal rhythm, normal heart sounds. Absent: systolic murmur, diastolic murmur, rubs, gallop, clicks GI/Abdominal exam: Present: soft, normal bowel sounds. Absent: distended, tenderness, guarding, rebound, rigid Extremities exam: Present: normal inspection, full ROM, normal capillary refill. Absent: tenderness, pedal edema, joint swelling, calf tenderness Back exam: Present: normal inspection Neurological exam: Present: alert, oriented X3, CN II-XII intact Psychiatric exam: Present: normal affect, normal mood Skin exam: Present: warm, dry, intact, normal color. Absent: rash Course Vital Signs 08/22/24 08/22/24 08/22/24 09:35 10:05 10:26 Temperature 98.1 F 98.3 F Pulse Rate 91 79 Respiratory 36 H 30 H 30 H Rate Blood Pressure 151/95 183/113 O2 Sat by Pulse 99 99 Oximetry 08/22/24 08/22/24 08/22/24 11:15 11:28 11:35 Temperature Pulse Rate 88 80 78 Respiratory 18 24 Rate Blood Pressure 173/100 157/98 O2 Sat by Pulse 95 100 Oximetry 08/22/24 08/22/24 08/22/24 11:40 13:18 14:48 Temperature Pulse Rate 76 76 Respiratory 22 Rate Blood Pressure 153/93 184/81 O2 Sat by Pulse 97 Oximetry 08/22/24 16:17 Temperature 98.7 F Pulse Rate 72 Respiratory 22 Rate Blood Pressure 169/88 O2 Sat by Pulse 97 Oximetry - Reevaluation(s) Reevaluation #1: 08/22/24 11:21 Medical records reviewed Reevaluation #2: 08/22/24 11:21 Patient symptoms unchanged Reevaluation #3: 08/22/24 11:21 Patient informed of results and questions answered Reevaluation #4: Was pt. sent in by a medical professional or institution (, PA, FARM EQUIPMENT MAINTENANCE SUPERVISOR, urgent care, hospital, or long term...) When possible be specific @ -no Did you speak to anyone other than the patient for history (EMS, parent, family, police, friend...)? What history was obtained from this source @ -no Did you review nursing and triage notes (agree or disagree)? Why? @ -agree Are old charts reviewed (outside hosp., previous admission, EMS record, old EKG, old radiological studies, urgent care reports/EKG's, long term records)? Report findings @ -yes Differential Diagnosis (chest pain, altered mental status, abdominal pain women, abdominal pain men, vaginal bleeding, weakness, fever, dyspnea, syncope, headache, dizziness, GI bleed, back pain, seizure, CVA, palpatations, mental health, musculoskeletal)? @ -prior EKG interpreted by me (3pts min.). @ -yes X-rays interpreted by me (1pt min.). @ -no CT interpreted by me (1pt min.). @ -yes negative for acute disease U/S interpreted by me (1pt. min.). @ -no What testing was considered but not performed or refused? (CT, X-rays, U/S, labs)? Why? @ -none What meds were considered but not given or refused? Why? @ -none Did you discuss the management of the patient with other professionals (kane shane i.eRona Granados, PA, FARM EQUIPMENT MAINTENANCE SUPERVISOR, lab, RT, psych nurse, social science instructor, physical optics teacher, teacher, supervisory cbp officer, director of casework department)? Give summary @ -no Was smoking cessation discussed for >3mins.? @ -no Was critical care preformed (if so, how long)? @ -no Were there social determinants of health that impacted care today? How? (Homelessness, low income, unemployed, alcoholism, drug addiction, transportation, low edu. Level, literacy, decrease access to med. care, halfway, rehab)? @ -none Was there de-escalation of care discussed even if they declined (Discuss DNR or withdrawal of care, Hospice)? DNR status @ -no What co-morbidities impacted this encounter? (DM, HTN, Smoking, COPD, CAD, Cancer, CVA, ARF, Chemo, Hep., AIDS, mental health diagnosis, sleep apnea, morbid obesity)? @ -none Was patient admitted / discharged? Hospital course, mention meds given and route, prescriptions, significant lab abnormalities, going to OR and other pertinent info. @ - 53 female will be admitted for significant bronchiolitis breathing treatments pulmonary evaluation history of myasthenia gravis Admitted Undiagnosed new problem with uncertain prognosis? @ -no Drug Therapy requiring intensive monitoring for toxicity (Heparin, Nitro, Insulin, Cardizem)? @ -no Were any procedures done? @ -no Diagnosis/symptom? @ -RSV bronchiolitis Acute, or Chronic, or Acute on Chronic? @ -Acute Uncomplicated (without systemic symptoms) or Complicated (systemic symptoms)? @ -Complicated Side effects of treatment? @ -no Exacerbation, Progression, or Severe Exacerbation? @ -exacerbation Poses a threat to life or bodily function? How? (Chest pain, [place], [place], pneumonia, PE, COPD, DKA, ARF, appy, cholecystitis, CVA, Diverticulitis, Homicidal, Suicidal, threat to staff... and all critical care pts) @ -yes respiratory distress Reevaluation #5: Differential Dyspnea: Coronary syndrome, arrhythmia, tamponade, asthma, COPD, pulmonary embolism, pneumonia, pneumothorax, pulmonary effusion, anaphylaxis, diabetic ketoacidosis, flailed chest, pulmonary contusion, diaphragmatic rupture, anemia, neuromuscu lar, this is not meant to be an all-inclusive list. - Consultations Consultation #1: Spoke with To her who agrees to admit this patient Medical Decision Making - Medical Decision Making 53 female will be admitted for significant bronchiolitis breathing treatments pulmonary evaluation history of myasthenia gravis - Lab Data Result diagrams: 08/24/24 05:30 08/24/24 05:30 Lab Results 08/22/24 08/22/24 08/22/24 Range/Units 09:56 09:56 09:56 WBC 11.5 H (3.8-10.6) k/uL RBC 4.84 (3.80-5.40) m/uL Hgb 14.4 (11.4-16.0) gm/dL Hct 44.7 (34.0-46.0) % MCV 92.3 (80.0-100.0) fL MCH 29.8 (25.0-35.0) pg MCHC 32.3 (31.0-37.0) g/dL RDW 12.6 (11.5-15.5) % Plt Count 362 (150-450) k/uL MPV 7.3 Neutrophils % 82 % Lymphocytes % 10 % Monocytes % 5 % Eosinophils % 0 % Basophils % 0 % Neutrophils # 9.5 H (1.3-7.7) k/uL Lymphocytes # 1.2 (1.0-4.8) k/uL Monocytes # 0.6 (0-1.0) k/uL Eosinophils # 0.0 (0-0.7) k/uL Basophils # 0.0 (0-0.2) k/uL PT 12.0 (10.0-12.5) sec INR 1.1 (<1.2) APTT 22.7 (22.0-30.0) sec D-Dimer 0.20 (<0.60) mg/L FEU Sodium 137 (137-145) mmol/L Potassium 4.1 (3.5-5.1) mmol/L Chloride 106 (98-107) mmol/L Carbon Dioxide 23 (22-30) mmol/L Anion Gap 8 mmol/L BUN 14 (7-17) mg/dL Creatinine 0.86 (0.52-1.04) mg/dL Est GFR (CKD-EPI)AfAm 89 (>60 ml/min/1.73 sqM) Est GFR (CKD-EPI)NonAf 77 (>60 ml/min/1.73 sqM) Glucose 98 (74-99) mg/dL Plasma Lactic Acid Glen (0.7-2.0) mmol/L Calcium 10.8 H (8.4-10.2) mg/dL Magnesium 2.0 (1.6-2.3) mg/dL Total Bilirubin 0.6 (0.2-1.3) mg/dL AST 25 (14-36) U/L ALT 20 (4-34) U/L Alkaline Phosphatase 129 H (38-126) U/L Troponin I (0.000-0.034) ng/mL NT-Pro-B Natriuret Pep 366 pg/mL Total Protein 7.9 (6.3-8.2) g/dL Albumin 4.8 (3.5-5.0) g/dL Influenza Type A (PCR) (Not Detectd) Influenza Type B (PCR) (Not Detectd) RSV (PCR) (Not Detectd) SARS-CoV-2 (PCR) (Not Detectd) 08/22/24 08/22/24 08/22/24 Range/Units 09:56 09:56 09:56 WBC (3.8-10.6) k/uL RBC (3.80-5.40) m/uL Hgb (11.4-16.0) gm/dL Hct (34.0-46.0) % MCV (80.0-100.0) fL MCH (25.0-35.0) pg MCHC (31.0-37.0) g/dL RDW (11.5-15.5) % Plt Count (150-450) k/uL MPV Neutrophils % % Lymphocytes % % Monocytes % % Eosinophils % % Basophils % % Neutrophils # (1.3-7.7) k/uL Lymphocytes # (1.0-4.8) k/uL Monocytes # (0-1.0) k/uL Eosinophils # (0-0.7) k/uL Basophils # (0-0.2) k/uL PT (10.0-12.5) sec INR (<1.2) APTT (22.0-30.0) sec D-Dimer (<0.60) mg/L FEU Sodium (137-145) mmol/L Potassium (3.5-5.1) mmol/L Chloride (98-107) mmol/L Carbon Dioxide (22-30) mmol/L Anion Gap mmol/L BUN (7-17) mg/dL Creatinine (0.52-1.04) mg/dL Est GFR (CKD-EPI)AfAm (>60 ml/min/1.73 sqM) Est GFR (CKD-EPI)NonAf (>60 ml/min/1.73 sqM) Glucose (74-99) mg/dL Plasma Lactic Acid Glen 1.3 (0.7-2.0) mmol/L Calcium (8.4-10.2) mg/dL Magnesium (1.6-2.3) mg/dL Total Bilirubin (0.2-1.3) mg/dL AST (14-36) U/L ALT (4-34) U/L Alkaline Phosphatase (38-126) U/L Troponin I 0.016 (0.000-0.034) ng/mL NT-Pro-B Natriuret Pep pg/mL Total Protein (6.3-8.2) g/dL Albumin (3.5-5.0) g/dL Influenza Type A (PCR) Not Detected (Not Detectd) Influenza Type B (PCR) Not Detected (Not Detectd) RSV (PCR) Detected A (Not Detectd) SARS-CoV-2 (PCR) Not Detected (Not Detectd) - EKG Data -: EKG Interpreted by Me (EKG is sinus 82 RI 2 20Q QRS 102 QTc 410) - Radiology Data Radiology results: report reviewed (CTA chest negative for PE), image reviewed Critical Care Time Critical Care Time: Yes Total Critical Care Time: 31 Disposition Clinical Impression: Bronchiolitis, RSV (acute bronchiolitis due to respiratory syncytial virus) Disposition: ADMITTED IP TO THIS HOSP Condition: Fair Is patient prescribed a controlled substance at d/c from ED?: No Time of Disposition: 11:00
[2024-08-22] MEDS: SODIUM CHLORIDE 0.9% 1,000 ML IV STA ×2 (10:06)
[2024-08-22] MEDS: HYDROmorphone 1 MG/ML 1 ML SYRINGE IVP STA (10:22)
[2024-08-22 10:31] LABS: Basophils % (A) 0 %; Eosinophils % (A) 0 %; HCT 44.7 % (34.0-46.0); HGB 14.4 gm/dL (11.4-16.0); Lymphocytes # (A) 1.2 k/uL (1.0-4.8); Lymphocytes % (A) 10 %; MCH 29.8 pg (25.0-35.0); MCHC 32.3 g/dL (31.0-37.0); MCV 92.3 fL (80.0-100.0); Mean Platelet Volume 7.3; Monocytes # (A) 0.6 k/uL (0-1.0); Monocytes % (A) 5 %; Neutrophils # (A) 9.5 k/uL (1.3-7.7); Neutrophils % (A) 82 %; Platelet Count 362 k/uL (150-450); RBC 4.84 m/uL (3.80-5.40); RDW 12.6 % (11.5-15.5); WBC 11.5 k/uL (3.8-10.6)
[2024-08-22 10:44] LABS: ALT 20 U/L (4-34); AST 25 U/L (14-36); African American GFR (CKD) 89 (>60 ml/min/1.73 sqM); Albumin 4.8 g/dL (3.5-5.0); Alkaline Phosphatase 129 U/L (38-126); Anion Gap 8 mmol/L; Blood Urea Nitrogen 14 mg/dL (7-17); Calcium 10.8 mg/dL (8.4-10.2); Carbon Dioxide 23 mmol/L (22-30); Chloride 106 mmol/L (98-107); Glucose 98 mg/dL (74-99); Non-African American GFR(CKD) 77 (>60 ml/min/1.73 sqM); Potassium 4.1 mmol/L (3.5-5.1); Sodium 137 mmol/L (137-145); Total Bilirubin 0.6 mg/dL (0.2-1.3); Total Protein 7.9 g/dL (6.3-8.2)
[2024-08-22 10:53] LABS: NT-Pro-B-Type Natriuretic Pept 366 pg/mL
--- NOTE | 2024-08-22 11:02 | CT ---
EXAMINATION TYPE: CT angio chest DATE OF EXAM: 08/22/2024 COMPARISON: Prior noncontrast CT 2017 HISTORY: SOB, CP, hx DVT CT DLP: 266.4 mGycm. Automated Exposure Control for Dose Reduction was Utilized. CONTRAST: CTA scan of the thorax is performed with IV Contrast, patient injected with 100 mL of Isovue 370, pul monary embolism protocol. MIP Images are created on CT scanner and reviewed. FINDINGS: LUNGS: There is 1.2 x 0.7 cm lingular nodule or nodular consolidation axial image 87 redemonstrated s imilar to prior. There is a smaller 4 mm nodule superior to this axial image [address] able. Right lung is clear. No pleural effusion or pneumothorax seen bilaterally. Mild central peribro nchial wall thickening is seen bilaterally. MEDIASTINUM: There is satisfactory enhancement of the pulmonary artery and its branches, there is no CT evidence for pulmonary embolism. Satisfactory enhancement of the aorta without aneurysm or dissect ion. No cardiomegaly tiny pericardial effusion is seen.. OTHER: Surgical changes at level of diaphragmatic hiatus are redemonstrated. Cholecystectomy clips ar e partially imaged. Scoliotic curvature with multilevel spurring in the thoracic spine is redemonstra david. IMPRESSION: 1. No CT evidence for acute pulmonary embolism. 2. There is mild bilateral central bronchial wall thickening. Findings consistent with reactive airwa y disease possibly from a viral bronchiolitis. Correlate clinically. [facility], , 08/22/2024 11:00 AM
[2024-08-22 11:10] LABS: Influenza A Not Detected (Not Detectd); Influenza B Not Detected (Not Detectd); RSV Detected (Not Detectd)
[2024-08-22 11:12] LABS: INR 1.1 (<1.2); Partial Thromboplastin Time 22.7 sec (22.0-30.0)
[2024-08-22] MEDS ORDERED: HYDROmorphone 1 MG/ML 1 ML SYRINGE IVP PRN (11:18)
[2024-08-22] MEDS ORDERED: NALOXONE 0.4 MG/ML 1 ML VIAL IV PRN (11:18)
[2024-08-22] MEDS ORDERED: ONDANSETRON 4 MG/2 ML VIAL IVP PRN (11:18)
[2024-08-22] MEDS: IPRATROPIUM-ALBUTEROL 3 ML NEB INHALATION STA (11:28)
[2024-08-22] MEDS: SODIUM CHLORIDE 0.9% 1,000 ML IV SCH (12:20)
--- NOTE | 2024-08-22 16:08 | P.CNPUL ---
History of Present Illness Consult date: 08/22/24 Requesting physician: Benjy Joy Reason for consult: dyspnea, cough, hypoxemia Chief complaint: Shortness of breath, and cough. History of present illness: Pulmonary consult dated August 22, 2024. This is a 53-year-old female with history of myasthenia gravis, who actually works here, and [employer], who states that she started not feeling well last Tuesday. By Tuesday, he was complaining of shortness of breath, and cough, and it progressed from that time. She apparently saw her primary care physician, both on Tuesday and Tuesday, and today, on Tuesday, he sent her here to the hospital to be evaluated. Her primary issue now is shortness of breath with any activity. She is coughing, producing some phlegm. 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 Anyway, she apparently did test positive for RSV. She is seen in the emergency department, room 21. She is on 2 L of oxygen. She is receiving saline at 125 cc an hour. As mentioned, she does have a history of myasthenia gravis and takes Mestinon for that. She denies all other medical problems. She does not smoke cigarettes or vapes. White count was 11.5, hemoglobin 14.4, hematocrit 44.7, and platelet count of 362,000. Coagulation studies were normal. Sodium 137, potassium 4.1, chlorides 106, CO2 23, BUN 14, creatinine 0.86. Calcium 10.8. Troponins were 0.0160.018 and 0.016. N-terminal proBNP was normal. Viral screen was positive for RSV. CT angiogram was negative for pulmonary embolism. It did show some mild bilateral central bronchial wall thickening consistent with bronchiolitis. Review of Systems REVIEW OF SYSTEMS: CONSTITUTIONAL: [Negative.] NEUROLOGIC: [ Negative.] HEENT: [ Negative.] CARDIAC: [Negative.] PULMONARY: Shortness of breath, cough, with minimal production. GI: [Negative.] : [Negative.] RHEUMATOLOGIC: [ Negative.] IMMUNOLOGIC: [ Negative.] ENDOCRINE: [Negative. ] DERMATOLOGIC: [Negative.] Past Medical History Past Medical History: Deep Vein Thrombosis (DVT), Fibromyalgia, Osteoarthritis (OA), Supraventricular Tachycardia (SVT) Additional Past Medical History / Comment(s): HX KIDNEY STONES, TMJ, MIGRAINES,VARICOSE VEINS,ULCERS, IBS, MYASTHENIA GRAVIS, Herniated Discs. History of Any Multi-Drug Resistant Organisms: None Reported Past Surgical History: Cardiac Ablation, Section, Cholecystectomy, Hysterectomy, Tubal Ligation Additional Past Surgical History / Comment(s): VICKY.VARICOSE VEIN STRIPPING,vicky OOPHORECTOMY,KITTY FUNDOPLICATION, PAIN PROCEDURE. Past Anesthesia/Blood Transfusion Reactions: Motion Sickness Past Psychological History: No Psychological Hx Reported Past Alcohol Use History: Occasional - Past Family History Mother Family Medical History: Cancer Medications and Allergies Home Medications Medication Instructions Recorded Confirmed Type Gabapentin [Neurontin] 800 mg PO TID 04/24/14 08/22/24 History Pyridostigmine [Mestinon] 60 mg PO TID 04/24/14 08/22/24 History SUMAtriptan succinate [Imitrex] 50 mg PO BID PRN 04/24/14 08/22/24 History tiZANidine HCL [Zanaflex] 4 mg PO BID PRN 07/09/14 08/22/24 History Azithromycin [Zithromax Z Pack] See Taper PO DIRECTED 08/22/24 08/22/24 History methylPREDNISolone [Medrol Dose See Taper PO DIRECTED 08/22/24 08/22/24 History Pack] Allergies Allergy/AdvReac Type Severity Reaction Status Date / Time adhesive Allergy Rash/Hives Verified 08/22/24 11:38 adhesive tape Allergy Rash/Hives Verified 08/22/24 11:38 amoxicillin [Amoxicillin] Allergy Rash/Hives Verified 08/22/24 11:38 bupropion HCl Allergy Rash/Hives, Verified 08/22/24 11:38 [From Wellbutrin] DYSPNEA clindamycin HCl Allergy Rash/Hives Verified 08/22/24 11:38 [From Cleocin] clindamycin palmitate HCl Allergy Rash/Hives Verified 08/22/24 11:38 [From Cleocin] clindamycin phosphate Allergy Rash/Hives Verified 08/22/24 11:38 [From Cleocin] codeine Allergy Nausea & Verified 08/22/24 11:38 Vomiting,HIVES doxycycline Allergy Rash/Hives, Verified 08/22/24 11:38 SOB erythromycin base Allergy Abdominal Verified 08/22/24 11:38 [Erythromycin Base] Pain estrogens, conjugated Allergy Itching Verified 08/22/24 11:38 [From Premarin] etodolac [From Lodine] Allergy Rash/Hives Verified 08/22/24 11:38 pregabalin [From Lyrica] Allergy BLURRED Verified 08/22/24 11:38 VISION AND HAND NUMBNESS sulfamethoxazole Allergy Rash/Hives Verified 08/22/24 11:38 [From Bactrim] topiramate [From Topamax] Allergy HAND Verified 08/22/24 11:38 NUMBNESS trimethoprim [From Bactrim] Allergy Rash/Hives Verified 08/22/24 11:38 Physical Exam Osteopathic Statement: *. No significant issues noted on an osteopathic structural exam other than those noted in the History and Physical/Consult. Vitals: Vital Signs Temp Pulse Resp BP Pulse Ox 08/22/24 14:48 76 22 184/81 97 08/22/24 13:18 153/93 08/22/24 11:40 76 08/22/24 11:35 78 24 157/98 100 08/22/24 11:28 80 08/22/24 11:15 88 18 173/100 95 08/22/24 10:26 98.3 F 79 30 H 183/113 99 08/22/24 10:05 30 H 08/22/24 09:35 98.1 F 91 36 H 151/95 99 Intake and Output 08/22/24 08/22/24 08/22/24 06:59 14:59 22:59 Other: Weight 72.575 kg No acute distress, oriented 3. Mildly tachypneic. HEENT examination is grossly unremarkable. Mucous membranes are moist. No oral lesions. Neck supple. Full range of motion. No adenopathy thyromegaly or neck vein distention. Cardiovascular examination reveals regular rhythm rate. S1-S2 normal. No S3 or S4. No discernible murmur noted. Lungs reveal mild expiratory rhonchi. No crackles or wheezes. Breath sounds equal. Abdomen soft bowel sounds are heard. No masses or tenderness. Extremities are intact. No cyanosis clubbing or edema. Skin is without rash or lesion. Neurologic examination is brief but nonfocal. Results - Laboratory Findings CBC and BMP: 08/22/24 09:56 08/22/24 09:56 PT/INR, D-dimer PT 12.0 sec (10.0-12.5) 08/22/24 09:56 INR 1.1 (<1.2) 08/22/24 09:56 D-Dimer 0.20 mg/L FEU (<0.60) 08/22/24 09:56 Abnormal lab findings: Abnormal Labs 08/22/24 08/22/24 08/22/24 09:56 09:56 09:56 WBC 11.5 H Neutrophils # 9.5 H Calcium 10.8 H Alkaline Phosphatase 129 H RSV (PCR) Detected A - Diagnostic Findings CT scan - chest: image reviewed Assessment and Plan Assessment: Progressive shortness of breath and cough, secondary to RSV induced viral bronchiolitis. No evidence of pulmonary embolism on CT angiogram. History of myasthenia gravis, maintained on Mestinon Plan: Plan dated August 22, 2024. The patient is seen in the emergency department, room 21. The patient has viral bronchiolitis, with reactive bronchospasm, secondary to RSV infection. She started not feeling well last Tuesday, and it progressed, to the point where she was seen by her physician on Tuesday, and today. She was sent to the emergency department, to be further evaluated. CT angiogram was negative for PE. Examination reveals diffuse coarse rhonchi, particularly on exhalation. The patient will be given breathing treatments, as well as corticosteroids. We will continue to follow. Prognosis is thought to be good. Time with Patient: Greater than 30
[2024-08-22] MEDS ORDERED: IPRATROPIUM-ALBUTEROL 3 ML NEB INHALATION PRN (16:09)
[2024-08-22] MEDS ORDERED: tiZANidine 4 MG TAB PO PRN (16:43)
[2024-08-22] MEDS: ENALAPRILAT 1.25 MG/ML 1 ML VIAL IVP PRN (17:33)
[2024-08-22] MEDS: ACETAMINOPHEN TAB 325 MG TAB PO PRN (17:33)
[2024-08-22] MEDS: methylPREDNISolone SOD SUCCI 40 MG/ML 1 ML VIAL IV SCH (17:40)
[2024-08-22] MEDS: BUDESONIDE 1 MG/2 ML NEBU INHALATION SCH (19:40)
[2024-08-22] MEDS: IPRATROPIUM-ALBUTEROL 3 ML NEB INHALATION SCH (19:40)
[2024-08-22] MEDS: FORMOTEROL FUMARATE 20 MCG/2 ML NEBU INHALATION SCH (19:40)
[2024-08-22] MEDS: PYRIDOSTIGMINE 60 MG TAB PO SCH (20:38)
[2024-08-22] MEDS: GABAPENTIN 400 MG CAP PO SCH (20:38)
[2024-08-23] MEDS: ENOXAPARIN 40 MG/0.4 ML SYRINGE SQ SCH (08:37)
[2024-08-23 09:10] LABS: ALT 17 U/L (8-44); AST 25 U/L (13-35); Albumin/Globulin Ratio 1.67 Ratio (1.60-3.17); Alkaline Phosphatase 107 U/L (41-126); BUN/Creat Ratio 15.62 Ratio (12.00-20.00); Blood Urea Nitrogen 12.5 mg/dL (9.0-27.0); Calcium 9.9 mg/dL (8.7-10.3); Carbon Dioxide 19.1 mmol/L (21.6-31.8); Chloride 108 mmol/L (96-109); Globulin 2.4 g/dL (1.6-3.3); Glucose 128 mg/dL (70-110); Potassium 4.5 mmol/L (3.5-5.5); Sodium 140 mmol/L (135-145); Total Bilirubin 0.2 mg/dL (0.3-1.2); Total Protein 6.4 g/dL (6.2-8.2)
[2024-08-23 09:20] LABS: Basophils # (A) 0.03 X 10*3/uL (0.00-0.10); Basophils % (A) 0.5 %; Eosinophils # (A) 0.01 X 10*3/uL (0.04-0.35); Eosinophils % (A) 0.2 %; HCT 40.6 % (37.2-46.3); HGB 13.1 g/dL (12.0-15.0); Lymphocytes # (A) 0.61 X 10*3/uL (0.90-5.00); MCHC 32.3 g/dL (32.0-37.0); MCV 93.1 FL (80.0-97.0); Mean Platelet Volume 10.6 FL (9.5-12.2); Monocytes # (A) 0.12 X 10*3/uL (0.20-1.00); NRBC Per 100 WBC 0 X 10*3/uL (0.00-0.01); Neutrophils # (A) 5.29 X 10*3/uL (1.80-7.70); Platelet Count 287 X 10*3/uL (140-440); RBC 4.36 X 10*6/uL (4.10-5.20); RDW 13.2 % (11.5-14.5); WBC 6.08 X 10*3/uL (4.50-10.00)
--- NOTE | 2024-08-23 12:46 | P.PN ---
Subjective Progress Note Date: 08/23/24 This is a 53-year-old female with history of myasthenia gravis, who actually works here, and [employer], who states that she started not feeling well last Tuesday. By Tuesday, he was complaining of shortness of breath, and cough, and it progressed from that time. She apparently saw her primary care physician, both on Tuesday and Tuesday, and today, on Tuesday, he sent her here to the hospital to be evaluated. Her primary issue now is shortness of breath with any activity. She is coughing, producing some phlegm. 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 Anyway, she apparently did test positive for RSV. She is seen in the emergency department, room 21. She is on 2 L of oxygen. She is receiving saline at 125 cc an hour. As mentioned, she does have a history of myasthenia gravis and takes Mestinon for that. She denies all other medical problems. She does not smoke cigarettes or vapes. White count was 11.5, hemoglobin 14.4, hematocrit 44.7, and platelet count of 362,000. Coagulation studies were normal. Sodium 137, potassium 4.1, chlorides 106, CO2 23, BUN 14, creatinine 0.86. Calcium 10.8. Troponins were 0.0160.018 and 0.016. N-terminal proBNP was normal. Viral screen was positive for RSV. CT angiogram was negative for pulmonary embolism. It did show some mild bilateral central bronchial wall thickening consistent with bronchiolitis. The patient is seen today August 23, 2024 in follow-up on the regular medical floor. She is up ambulating in her room. Awake and alert in no acute distress. Feeling a bit better than yesterday. Not quite back to her baseline. Still with a dry nonproductive cough. Some chest tightness and wheezing. White count 6.0. Hemoglobin 13.1. Platelets 287. Sodium 140. Potassium 4.5. Bicarb 19. BUN 13. Creatinine 0.8. Troponins were negative x 3. Positive for RSV. She remains on DuoNeb inhalations, Pulmicort and Perforomist inhalations, IV Solu- Medrol. Normal saline at 75 mL/h. Objective - Vital Signs Vital signs: Vital Signs Temp 98.3 F 08/23/24 07:00 Pulse 76 08/23/24 12:30 Resp 16 08/23/24 07:00 BP 170/85 08/23/24 07:00 Pulse Ox 96 08/23/24 10:13 FiO2 Intake & Output 08/22/24 08/23/24 08/23/24 18:59 06:59 18:59 Intake Total 118 Balance 118 Weight 72.575 kg Intake: Oral 118 Other: # Voids 1 - Exam GENERAL EXAM: Alert, very pleasant 53-year-old female, on room air, fairly comfortable in no apparent distress. HEAD: Normocephalic. EYES: Normal reaction of pupils, equal size. NOSE: Clear with pink turbinates. THROAT: No erythema or exudates. NECK: No masses, no JVD. CHEST: No chest wall deformity. LUNGS: Equal air entry with few scattered rhonchi, end expiratory wheeze. CVS: S1 and S2 normal with no audible murmur, regular rhythm. ABDOMEN: No hepatosplenomegaly, normal bowel sounds, no guarding or rigidity. SPINE: No scoliosis or deformity SKIN: No rashes CENTRAL NERVOUS SYSTEM: No focal deficits, tone is normal in all 4 extremities. EXTREMITIES: There is no peripheral edema. No clubbing, no cyanosis. Peripheral pulses are intact. - Labs CBC & Chem 7: 08/23/24 04:55 08/23/24 04:55 Labs: Abnormal Lab Results - Last 24 Hours (Table) 08/23/24 08/23/24 Range/Units 04:55 04:55 Lymphocytes # 0.61 L (0.90-5.00) X 10*3/uL Monocytes # 0.12 L (0.20-1.00) X 10*3/uL Eosinophils # 0.01 L (0.04-0.35) X 10*3/uL Carbon Dioxide 19.1 L (21.6-31.8) mmol/L Anion Gap 12.90 H (4.00-12.00) mmol/L Glucose 128 H (70-110) mg/dL Total Bilirubin 0.2 L (0.3-1.2) mg/dL Assessment and Plan Assessment: Progressive shortness of breath and cough, secondary to RSV induced viral bronchiolitis No evidence of pulmonary embolism or pneumonia on CT angiogram History of myasthenia gravis, maintained on Mestinon Plan: The patient was seen and evaluated Labs and medications reviewed Continue bronchodilators, steroids Currently stable and on room air Not quite ready for discharge We will continue to follow I have personally seen and examined the patient, performed the documentation and the assessment and plan as written. Number of minutes spent on the visit: 10 Dictation was produced using [employer] dictation software. Please excuse any grammatical, word or spelling errors.
--- NOTE | 2024-08-23 14:00 | P.HPIM ---
History of Present Illness H&P Date: 08/22/24 Chief Complaint: RSV infection with pleurisy/myasthenia gravis HISTORY OF PRESENT ILLNESS: This is a 53-year-old female with a previous medical history significant for myasthenia gravis, migraine headaches, vitamin D deficiency, history of spondylosis of the lumbar spine status post laminectomy and foraminotomy that was done in 2018, patient came down with an upper respiratory infection about 2 days ago, and she came to the office 24 hours ago with increased sore throat and as well as increased cough and minimal short of breath, at that time she had a swab then she was placed on Medrol Dosepak along with Zithromax, patient came 24 hours later and she was complaining of severe shortness of breath, she had a chest x-ray earlier that did not show evidence of acute abnormalities, patient quite hypoxemic when she came to the office, she was referred to the emergency department for evaluation of possible pulmonary embolism, her swab came back positive for RSV AMB, because of the presentation and because of her underlying myasthenia gravis she was sent to the hospital for evaluation of the nerve testing as well as CT angiography to rule out any pulmonary embolism this was negative however she was admitted to the hospital for acute bronchitis due to RSV virus, and bronchospasm, she was seen in consultation by pulmonary medicine who placed her on Solu-Medrol 40 mg IV push every 8 hours, she was placed also on nebulized treatment [id number], Pu lmicort twice every day, and she was admitted to the hospital for further evaluation recommendation. REVIEW OF SYSTEMS: Constitutional: No documented fever, no chills, no night sweats. No weight ch abdoulaye. No weakness, fatigue or lethargy. No daytime sleepiness. EENT: positive for headache. No blurred vision or double vision, no loss of vision. No loss of Hearing, no ringing in the ears, no dizziness. No nasal drainage or congestion. No epistaxis. No sore throat. Lungs: positive for shortness of breath, positive for cough, no sputum production. positive for wheezing. Reports dyspnea with activity.positive for pleurisy Cardiovascular: No chest pain, no lower extremity edema. positive for palpitations. No paroxysmal nocturnal dyspnea. No orthopnea. No lightheadedness or dizziness. No syncopal episodes. Abdominal: Reports abdominal pain. No nausea, vomiting. No diarrhea. No constipation. No bloody or tarry stools reports loss of appetite. Genitourinary: No dysuria, increased frequency, urgency. No urinary retention. Musculoskeletal: positive for myalgias. positive for muscle weakness, no gait dysfunction, no frequent falls. No back pain. No neck pain. Integumentary: No wounds, no lesions. No rash or pruritus. No unusual bruising. No change in hair or nails. Neurologic: No aphasia. No facial droop. No change in mentation. No head injury. No headache. No paralysis. No paresthesia. Psychiatric: No depression. No anxiety. No mood swings. Endocrine: No abnormal blood sugars. No weight change. PAST MEDICAL HISTORY: Myasthenia gravis. Migraine headaches without intractable headache. Vitamin D deficiency. Low back pain. Endometriosis. Bilateral varicose vein. SVT. PAST SURGICAL HISTORY: Laminectomy and foraminotomy Dr. Kendrick 2017. Cholecystectomy 2008. Tubal ligation 1997. Left breast biopsy. times 09/19/1995. And 1997 D&C 1987 in 1998. Oophorectomy 2006. SVT ablation 2009 Multiple procedure for vein stripping. Laparotomy 1993, 1996, 2006 for endometriosis. Partial hysterectomy 1999. Bilateral oophorectomy 2006. Colonoscopy 01/08/2022 SOCIAL HISTORY: Patient is a lifelong non-smoker, she denies any alcohol ingestion, she no drug use or abuse, she works in the hospital. FAMILY HISTORY: Father 74-year-old with history of membranous glomerulonephritis, mother at the age of 65 with multiple myeloma, and had issues with low back pain and cervical cancer, 1 brother 51-year-old alive and well, 1 son and 1 daughter no major medical problems. PHYSICAL EXAMINATION: General: 53-year-old female sitting up in bed in minimal respiratory distress HEENT: Head is atraumatic, normocephalic, pupils were equal round reactive to light and recommendation, extraocular muscle movement were intact, sclera nonicteric, conjunctivae were pale, mucous membranes of the mouth are somewhat dry. Neck: Supple, no JVP, normal carotid upstroke bilaterally, no lymphadenopathy. Chest: Decreased breath sounds at the bases, few rhonchi, positive for expiratory wheezes, no chest wall tenderness, moderate intercostal retractions. Heart: First heart sound is normal, second heart sounds normal there is no gallop or murmur no rubs or heaves. Abdomen: Soft, nontender, nondistended, positive bowel sounds. Extremities: There is no edema no calf tenderness DP +2 bilaterally. Neurologic examination: Patient is awake alert and oriented x3 , cranial nerves II-12 appear grossly intact, muscle power were 5 out of 5 in upper extremities and 5 out of 5 in bilateral lower extremities, deep tendon reflexes normal bilaterally. ASSESSMENT AND PLAN: 1. Acute hypoxemic respiratory failure due to acute RSV infection with severe bronchospasm. Continue Solu-Medrol 40 mg IV push every 6 hours, DuoNeb 3 mL nebulization every 4 hours, continue Pulmicort 1 mg nebulization twice every day, continue contact and droplet isolation, monitor the patient symptoms very closely, try to wean her off oxygen, follow-up with the patient very closely, pulmonary consultation appreciated, CT angiography of the chest was negative for pulm embolism and did show some significant bronchitis due to RSV. Continue patient on formoterol as well 20 mcg nebulization twice every day 2. History of myasthenia gravis. Continue pyridostigmine 60 mg orally 3 times every day monitor the patient symptoms very closely, monitor the patient's respiratory status. 3. History of migraine headache stable at this point in time. 4. History of chronic low back pain. Continue gabapentin 800 mg orally 3 times every day, continue tizanidine 4 mg orally twice every day, follow-up with the patient very closely. 5. Elevated blood pressure without the diagnosis of hypertension. Started the patient on Vasotec 1.25 mg IV push every 6 hours as needed for systolic blood pressure greater than 160. 6. History of SVTstatus post ablation. 7. History of endometriosis status post hysterectomy. 8. History of migraine headaches stable at this point in time. 9. DVT prophylaxis. Continue Lovenox 40 mg subcutaneous every 24 hours. 10. GI prophylaxis. Protonix 40 mg orally once every day. 11. Admit to inpatient. Estimated length of stay 2 midnights. 12. Full code. Past Medical History Past Medical History: Deep Vein Thrombosis (DVT), Fibromyalgia, Osteoarthritis (OA), Supraventricular Tachycardia (SVT) Additional Past Medical History / Comment(s): HX KIDNEY STONES, TMJ, MIGRA RIOS,VARICOSE VEINS,ULCERS, IBS, MYASTHENIA GRAVIS, Herniated Discs. History of Any Multi-Drug Resistant Organisms: None Reported Past Surgical History: Cardiac Ablation, Section, Cholecystectomy, Hysterectomy, Tubal Ligation Additional Past Surgical History / Comment(s): VICKY.VARICOSE VEIN STRIPPING,vicky OOPHORECTOMY,KITTY FUNDOPLICATION, PAIN PROCEDURE. Past Anesthesia/Blood Transfusion Reactions: Motion Sickness Past Psychological History: No Psychological Hx Reported Past Alcohol Use History: Occasional - Past Family History Mother Family Medical History: Cancer Medications and Allergies Home Medications Medication Instructions Recorded Confirmed Type Gabapentin [Neurontin] 800 mg PO TID 04/24/14 08/22/24 History Pyridostigmine [Mestinon] 60 mg PO TID 04/24/14 08/22/24 History SUMAtriptan succinate [Imitrex] 50 mg PO BID PRN 04/24/14 08/22/24 History tiZANidine HCL [Zanaflex] 4 mg PO BID PRN 07/09/14 08/22/24 History Azithromycin [Zithromax Z Pack] See Taper PO DIRECTED 08/22/24 08/22/24 History methylPREDNISolone [Medrol Dose See Taper PO DIRECTED 08/22/24 08/22/24 History Pack] Allergies Allergy/AdvReac Type Severity Reaction Status Date / Time adhesive Allergy Rash/Hives Verified 08/22/24 11:38 adhesive tape Allergy Rash/Hives Verified 08/22/24 11:38 amoxicillin [Amoxicillin] Allergy Rash/Hives Verified 08/22/24 11:38 bupropion HCl Allergy Rash/Hives, Verified 08/22/24 11:38 [From Wellbutrin] DYSPNEA clindamycin HCl Allergy Rash/Hives Verified 08/22/24 11:38 [From Cleocin] clindamycin palmitate HCl Allergy Rash/Hives Verified 08/22/24 11:38 [From Cleocin] clindamycin phosphate Allergy Rash/Hives Verified 08/22/24 11:38 [From Cleocin] codeine Allergy Nausea & Verified 08/22/24 11:38 Vomiting,HIVES doxycycline Allergy Rash/Hives, Verified 08/22/24 11:38 SOB erythromycin base Allergy Abdominal Verified 08/22/24 11:38 [Erythromycin Base] Pain estrogens, conjugated Allergy Itching Verified 08/22/24 11:38 [From Premarin] etodolac [From Lodine] Allergy Rash/Hives Verified 08/22/24 11:38 pregabalin [From Lyrica] Allergy BLURRED Verified 08/22/24 11:38 VISION AND HAND NUMBNESS sulfamethoxazole Allergy Rash/Hives Verified 08/22/24 11:38 [From Bactrim] topiramate [From Topamax] Allergy HAND Verified 08/22/24 11:38 NUMBNESS trimethoprim [From Bactrim] Allergy Rash/Hives Verified 08/22/24 11:38 Physical Exam Vitals: Vital Signs Temp Pulse Resp BP Pulse Ox 08/22/24 11:40 76 08/22/24 11:35 78 24 157/98 100 08/22/24 11:28 80 08/22/24 11:15 88 18 173/100 95 08/22/24 10:26 98.3 F 79 30 H 183/113 99 08/22/24 10:05 30 H 08/22/24 09:35 98.1 F 91 36 H 151/95 99 Intake and Output 08/21/24 08/22/24 08/22/24 22:59 06:59 14:59 Other: Weight 72.575 kg Results CBC & Chem 7: 08/23/24 04:55 08/23/24 04:55 Labs: Abnormal Lab Results - Last 24 Hours (Table) 08/22/24 08/22/24 08/22/24 Range/Units 09:56 09:56 09:56 WBC 11.5 H (3.8-10.6) k/uL Neutrophils # 9.5 H (1.3-7.7) k/uL Calcium 10.8 H (8.4-10.2) mg/dL Alkaline Phosphatase 129 H (38-126) U/L RSV (PCR) Detected A (Not Detectd)
--- NOTE | 2024-08-23 14:02 | P.PN ---
Subjective Progress Note Date: 08/23/24 HISTORY OF PRESENT ILLNESS: This is a 53-year-old female with a previous medical history signif icant for myasthenia gravis, migraine headaches, vitamin D deficiency, history of spondylosis of the lumbar spine status post laminectomy and foraminotomy that was done in 2018, patient came down with an upper respiratory infection about 2 days ago, and she came to the office 24 hours ago with increased sore throat and as well as increased cough and minimal short of breath, at that time she had a swab then she was placed on Medrol Dosepak along with Zithromax, patient came 24 hours later and she was complaining of severe shortness of breath, she had a chest x-ray earlier that did not show evidence of acute abnormalities, patient quite hypoxemic when she came to the office, she was referred to the emergency department for evaluation of possible pulmonary embolism, her swab came back positive for RSV AMB, because of the presentation and because of her underlying myasthenia gravis she was sent to the hospital for evaluation of the nerve testing as well as CT angiography to rule out any pulmonary embolism this was negative however she was admitted to the hospital for acute bronchitis due to RSV virus, and bronchospasm, she was seen in consultation by pulmonary medicine who placed her on Solu-Medrol 40 mg IV push every 8 hours, she was placed also on nebulized treatment [id number], Pulmicort twice every day, and she was admitted to the hospital for further evaluation recommendation. 08/23: Patient is sitting up in bed is feeling much better today, she continues to be on Solu-Medrol 40 mg IV push every 6 hours, she is not requiring oxygen today, her pleurisy is gone, she continues to have occasional cough, no phlegm production, she has no abdominal pain, nausea vomiting or diarrhea at this time, she will be kept in the hospital for another 24 hours, hopefully she will be able to be switched to oral prednisone tomorrow morning can be discharged home. REVIEW OF SYSTEMS: Constitutional: No documented fever, no chills, no night sweats. No weight change. No weakness, fatigue or lethargy. No daytime sleepiness. EENT: positive for headache. No blurred vision or double vision, no loss of vision. No loss of Hearing, no ringing in the ears, no dizziness. No nasal drainage or congestion. No epistaxis. No sore throat. Lungs: positive for shortness of breath, positive for cough, no sputum production. positive for wheezing. Reports dyspnea with activity.positive for pleurisy Cardiovascular: No chest pain, no lower extremity edema. positive for palpitations. No paroxysmal nocturnal dyspnea. No orthopnea. No lightheadedness or dizziness. No syncopal episodes. Abdominal: Reports abdominal pain. No nausea, vomiting. No diarrhea. No constipation. No bloody or tarry stools reports loss of appetite. Genitourinary: No dysuria, increased frequency, urgency. No urinary retention. Musculoskeletal: positive for myalgias. positive for muscle weakness, no gait dysfunction, no frequent falls. No back pain. No neck pain. Integumentary: No wounds, no lesions. No rash or pruritus. No unusual bruising. No change in hair or nails. Neurologic: No aphasia. No facial droop. No change in mentation. No head injury. No headache. No paralysis. No paresthesia. Psychiatric: No depression. No anxiety. No mood swings. Endocrine: No abnormal blood sugars. No weight change. PHYSICAL EXAMINATION: General: 53-year-old female sitting up in bed in minimal respiratory distress HEENT: Head is atraumatic, normocephalic, pupils were equal round reactive to light and recommendation, extraocular muscle movement were intact, sclera nonicteric, conjunctivae were pale, mucous membranes of the mouth are somewhat dry. Neck: Supple, no JVP, normal carotid upstroke bilaterally, no lymphadenopathy. Chest: Decreased breath sounds at the bases, few rhonchi, positive for mild expiratory wheezes, no chest wall tenderness, no intercostal retractions. Heart: First heart sound is normal, second heart sounds normal there is no gallop or murmur no rubs or heaves. Abdomen: Soft, nontender, nondistended, positive bowel sounds. Extremities: There is no edema no calf tenderness DP +2 bilaterally. Neurologic examination: Patient is awake alert and oriented x3 , cranial nerves II-12 appear grossly intact, muscle power were 5 out of 5 in upper extremities and 5 out of 5 in bilateral lower extremities, deep tendon reflexes normal bilaterally. ASSESSMENT AND PLAN: 1. Acute hypoxemic respiratory failure due to acute RSV infection with severe bronchospasm. Continue Solu-Medrol 40 mg IV push every 6 hours, DuoNeb 3 mL nebulization every 4 hours, continue Pulmicort 1 mg nebulization twice every day, continue contact and droplet isolation, monitor the patient symptoms very closely, try to wean her off oxygen, follow-up with the patient very closely, pulmonary consultation appreciated, CT angiography of the chest was negative for pulm embolism and did show some significant bronchitis due to RSV. Continue patient on formoterol as well 20 mcg nebulization twice every day 2. History of myasthenia gravis. Continue pyridostigmine 60 mg orally 3 times every day monitor the patient symptoms very closely, monitor the patient's respiratory status. 3. History of migraine headache stable at this point in time. 4. History of chronic low back pain. Continue gabapentin 800 mg orally 3 times every day, continue tizanidine 4 mg orally twice every day, follow-up with the patient very closely. 5. Elevated blood pressure without the diagnosis of hypertension. Started the patient on Vasotec 1.25 mg IV push every 6 hours as needed for systolic blood pressure greater than 160. 6. History of SVTstatus post ablation. 7. History of endometriosis status post hysterectomy. 8. History of migraine headaches stable at this point in time. 9. DVT prophylaxis. Continue Lovenox 40 mg subcutaneous every 24 hours. 10. GI prophylaxis. Protonix 40 mg orally once every day. 11. Hopefully home tomorrow morning. Objective - Vital Signs Vital signs: Vital Signs Temp 98.3 F 08/23/24 07:00 Pulse 76 08/23/24 12:30 Resp 16 08/23/24 07:00 BP 170/85 08/23/24 07:00 Pulse Ox 96 08/23/24 10:13 FiO2 Intake & Output 08/22/24 08/23/24 08/23/24 18:59 06:59 18:59 Intake Total 118 Balance 118 Weight 72.575 kg Intake: Oral 118 Other: # Voids 1 - Labs CBC & Chem 7: 08/23/24 04:55 08/23/24 04:55 Labs: Abnormal Lab Results - Last 24 Hours (Table) 08/23/24 08/23/24 Range/Units 04:55 04:55 Lymphocytes # 0.61 L (0.90-5.00) X 10*3/uL Monocytes # 0.12 L (0.20-1.00) X 10*3/uL Eosinophils # 0.01 L (0.04-0.35) X 10*3/uL Carbon Dioxide 19.1 L (21.6-31.8) mmol/L Anion Gap 12.90 H (4.00-12.00) mmol/L Glucose 128 H (70-110) mg/dL Total Bilirubin 0.2 L (0.3-1.2) mg/dL
--- NOTE | 2024-08-23 23:24 | P.CNNES ---
History of Present Illness Consult date: 08/23/24 Requesting physician: Reji Granger Reason for Consult: Myasthenia gravis History of Present Illness: Patient is a 53-year-old right-handed female with a diagnosis of myasthenia gravis, came to the hospital yesterday at 9:32 AM because of shortness of breath. Patient has been diagnosed with RSV infection. Neurology consulted for myasthenia gravis. Patient states that she was diagnosed with myasthenia gravis in 2005. She initially saw Dr. Issa for a while, and no diagnosis was made. She then s tarted seeing Dr. Regan, who diagnosed her with myasthenia gravis. Patient claims that her antibodies were positive. She also had EMG done, the results which she does not remember. She was started on Mestinon, and is doing well with it. She has not tried any other medications for MG. Patient states her symptoms of myasthenia consisted of generalized weakness, could not do anything. Her symptoms would improve on taking rest or laying down. Activities, particularly repetitive activities made her symptoms come back. She never had any occular issues. She used to drop things with her hands, and legs would give out. Since her neurologist stopped practicing, she was seen for some time by in [facility]. Now she is seeing , after relocated to [place]. Patient says that with her myasthenia symptoms, she used to have some shortness of breath and very slight dysphagia. She had a CT chest done, which did not reveal any thymic enlargement. Even at this time, some days patient does not feel well, weak all over and when she lays down, she is fine. Otherwise mostly she is fine. Patient states that once she weaned off Mestinon for about 1-3 months, but did not do well and has to go back on Mestinon. Vital signs on arrival blood pressure 151/95, which came up to 183/113, pulse rate 91 temperature 98.1. Patient has been afebrile. Blood test shows WBC 11.5 hemoglobin is normal platelets normal. PT PTT normal. CMP is normal. Influenza is negative, RSV is positive. Coronavirus PCR negative. Troponin negative. Patient had negative acetylcholine receptor antibodies <0.30 on 03/25/2016. Striated muscle antibodies were not performed. Patient had negative SCL receptor antibodies also on 05/13/2014. Striated muscle antibodies were negative on 05/13/2014. Since she suffered from RSV, she states her myasthenia is under control. No relapse. Denies any diplopia, no dysphagia. Denies any significant weakness. She is scheduled for modified barium swallow as an outpatient by her neurologist. Patient currently takes Imitrex, Mestinon 60 mg 3 times daily, gabapentin 800 mg 3 times daily, Zanaflex 4 mg twice daily methylprednisolone Medrol Dosepak and Zithromax. Review of Systems All pertinent positive and negative review of systems mentioned this period. Otherwise unremarkable. Past Medical History Past Medical History: Deep Vein Thrombosis (DVT), Fibromyalgia, Osteoarthritis (OA), Supraventricular Tachycardia (SVT) Additional Past Medical History / Comment(s): HX KIDNEY STONES, TMJ, MIGRAINES,VARICOSE VEINS,ULCERS, IBS, MYASTHENIA GRAVIS, Herniated Discs. History of Any Multi-Drug Resistant Organisms: None Reported Past Surgical History: Cardiac Ablation, Section, Cholecystectomy, Hysterectomy, Tubal Ligation Additional Past Surgical History / Comment(s): VICKY.VARICOSE VEIN STRIPPING,vicky OOPHORECTOMY,KITTY FUNDOPLICATION, PAIN PROCEDURE. Past Anesthesia/Blood Transfusion Reactions: Motion Sickness Past Psychological History: No Psychological Hx Reported Past Alcohol Use History: Occasional - Past Family History Mother Family Medical History: Cancer Medications and Allergies Home Medications Medication Instructions Recorded Confirmed Type Gabapentin [Neurontin] 800 mg PO TID 04/24/14 08/22/24 History Pyridostigmine [Mestinon] 60 mg PO TID 04/24/14 08/22/24 History SUMAtriptan succinate [Imitrex] 50 mg PO BID PRN 04/24/14 08/22/24 History tiZANidine HCL [Zanaflex] 4 mg PO BID PRN 07/09/14 08/22/24 History Azithromycin [Zithromax Z Pack] See Taper PO DIRECTED 08/22/24 08/22/24 History methylPREDNISolone [Medrol Dose See Taper PO DIRECTED 08/22/24 08/22/24 History Pack] Allergies Allergy/AdvReac Type Severity Reaction Status Date / Time adhesive Allergy Rash/Hives Verified 08/22/24 11:38 adhesive tape Allergy Rash/Hives Verified 08/22/24 11:38 amoxicillin [Amoxicillin] Allergy Rash/Hives Verified 08/22/24 11:38 bupropion HCl Allergy Rash/Hives, Verified 08/22/24 11:38 [From Wellbutrin] DYSPNEA clindamycin HCl Allergy Rash/Hives Verified 08/22/24 11:38 [From Cleocin] clindamycin palmitate HCl Allergy Rash/Hives Verified 08/22/24 11:38 [From Cleocin] clindamycin phosphate Allergy Rash/Hives Verified 08/22/24 11:38 [From Cleocin] codeine Allergy Nausea & Verified 08/22/24 11:38 Vomiting,HIVES doxycycline Allergy Rash/Hives, Verified 08/22/24 11:38 SOB erythromycin base Allergy Abdominal Verified 08/22/24 11:38 [Erythromycin Base] Pain estrogens, conjugated Allergy Itching Verified 08/22/24 11:38 [From Premarin] etodolac [From Lodine] Allergy Rash/Hives Verified 08/22/24 11:38 pregabalin [From Lyrica] Allergy BLURRED Verified 08/22/24 11:38 VISION AND HAND NUMBNESS sulfamethoxazole Allergy Rash/Hives Verified 08/22/24 11:38 [From Bactrim] topiramate [From Topamax] Allergy HAND Verified 08/22/24 11:38 NUMBNESS trimethoprim [From Bactrim] Allergy Rash/Hives Verified 08/22/24 11:38 Physical Examination - Vital Signs Vital Signs: Vital Signs Temp Pulse Pulse Resp BP BP Pulse Ox 08/23/24 12:30 76 08/23/24 12:13 76 08/23/24 10:13 96 08/23/24 09:21 72 08/23/24 09:06 76 96 08/23/24 07:00 98.3 F 65 16 170/85 96 08/23/24 04:08 98.2 F 78 15 152/81 98 08/22/24 21:00 155/80 08/22/24 20:06 72 08/22/24 20:00 70 08/22/24 19:55 70 08/22/24 19:40 68 08/22/24 19:17 98.4 F 70 16 159/84 94 L 08/22/24 16:47 98.1 F 69 16 184/96 99 08/22/24 16:17 98.7 F 72 22 169/88 97 01/22/25 14:48 76 22 184/81 97 08/22/24 13:18 153/93 Intake and Output 08/22/24 08/23/24 08/23/24 22:59 06:59 14:59 Intake Total 118 Balance 118 Intake: Oral 118 Other: # Voids 1 1 Patient is a middle aged female, very pleasant, in no acute distress. Patient is alert awake oriented to time place and person. Speech and language functions are normal. Patient can name and repeat very well. No aphasia or dysarthria. Attention, concentration and fund of knowledge is adequate. On cranial nerve examination, pupils are equal, round and reacting to light, visual putnam are full on confrontation, with no neglect on double simultaneous stimulation. Extraocular muscles are intact with no nystagmus. Face is symmetric, tongue protrudes to the midline. Palatal elevation and sensation normal, hearing and shoulder shrug normal, facial sensation normal. Her strength of the facial muscles in the upper part and lower part of the face are all normal. Neck flexion is normal. On muscle strength testing, there is no pronator drift and the strength is normal in arms and legs distally and proximally. Deep tendon reflexes are symmetric 1+ to 2+ and plantars downgoing. Sensory to touch is equal with no neglect on double simultaneous stimulation. Cerebellar function showed no ataxia for [id number] testing. No dysdiadochokinesia. No ataxia for [id number] testing on either side. Tone and bulk of muscles normal. Gait deferred.. On general examination, there is no carotid bruit or murmur, S1-S2 audible. Chest is clear on consultation. Abdomen is soft nontender. No organomegaly, bowel sounds present. Peripheral pulses are present. No peripheral edema. Results - Laboratory Findings CBC and BMP: 08/23/24 04:55 08/23/24 04:55 Abnormal Lab Findings: Abnormal Labs 08/22/24 08/22/24 08/22/24 09:56 09:56 09:56 WBC 11.5 H Neutrophils # 9.5 H Lymphocytes # Monocytes # Eosinophils # Carbon Dioxide Anion Gap Glucose Calcium 10.8 H Total Bilirubin Alkaline Phosphatase 129 H RSV (PCR) Detected A 08/23/24 08/23/24 04:55 04:55 WBC Neutrophils # Lymphocytes # 0.61 L Monocytes # 0.12 L Eosinophils # 0.01 L Carbon Dioxide 19.1 L Anion Gap 12.90 H Glucose 128 H Calcium Total Bilirubin 0.2 L Alkaline Phosphatase RSV (PCR) Assessment and Plan Assessment: * Probable myasthenia gravis, currently in remission. * Acute RSV infection * History of migraine headache * Chronic low back pain, on gabapentin on Zanaflex. Plan: * Patient's myasthenia gravis at this time is in remission. No worsening of her MG. * Continue home dose of Mestinon 60 mg 3 times a day. * Treatment of underlying pulmonary condition as per [place] [facility]. * Neurologically, no other workup indicated. * Clear from neurology standpoint. Patient has an appointment with her neurologist on 08/28/2024. * Thank you for the consult.
[2024-08-24] MEDS: methylPREDNISolone SOD SUCCI 40 MG/ML 1 ML VIAL IV SCH (05:20)
[2024-08-24] MEDS: PANTOPRAZOLE 40 MG TABLET PO SCH (05:32)
[2024-08-24 08:10] VITALS: BP 172/89; RESP 16; TEMP 97.9
[2024-08-24] MEDS: LOSARTAN 50 MG TAB PO SCH (08:18)
[2024-08-24 08:32] LABS: ALT 16 U/L (8-44); AST 20 U/L (13-35); Albumin 3.9 g/dL (3.8-4.9); Albumin/Globulin Ratio 1.77 Ratio (1.60-3.17); Alkaline Phosphatase 94 U/L (41-126); Blood Urea Nitrogen 10.4 mg/dL (9.0-27.0); Calcium 9.9 mg/dL (8.7-10.3); Carbon Dioxide 22.3 mmol/L (21.6-31.8); Chloride 106 mmol/L (96-109); Globulin 2.2 g/dL (1.6-3.3); Glucose 97 mg/dL (70-110); Sodium 137 mmol/L (135-145); Total Bilirubin 0.2 mg/dL (0.3-1.2); Total Protein 6.1 g/dL (6.2-8.2)
[2024-08-24 08:33] LABS: Basophils # (A) 0.02 X 10*3/uL (0.00-0.10); Basophils % (A) 0.2 %; Eosinophils # (A) 0 X 10*3/uL (0.04-0.35); Eosinophils % (A) 0 %; HCT 39.2 % (37.2-46.3); HGB 12.6 g/dL (12.0-15.0); Lymphocytes # (A) 2.06 X 10*3/uL (0.90-5.00); Lymphocytes % (A) 22.2 %; MCH 29.7 pg (27.0-32.0); MCHC 32.1 g/dL (32.0-37.0); MCV 92.5 FL (80.0-97.0); Mean Platelet Volume 10.3 FL (9.5-12.2); Monocytes # (A) 0.72 X 10*3/uL (0.20-1.00); Monocytes % (A) 7.7 %; NRBC Per 100 WBC 0 X 10*3/uL (0.00-0.01); Neutrophils # (A) 6.46 X 10*3/uL (1.80-7.70); Neutrophils % (A) 69.5 %; Platelet Count 335 X 10*3/uL (140-440); RBC 4.24 X 10*6/uL (4.10-5.20); RDW 13.3 % (11.5-14.5)
[2024-08-24] MEDS: predniSONE 50 MG TAB PO SCH (09:42)
[2024-08-24 11:50] VITALS: PULSE 64
--- NOTE | 2024-08-24 11:52 | P.DS ---
Providers Date of admission: 08/22/24 11:35 Expected date of discharge: 08/24/24 Attending physician: Benjy Joy Consults: 08/22/24 11:18 Consult Physician Routine Consulting Provider: Ulysses Mendoza Consult Reason/Comments: rsv,MG Do you want consulting provider notified?: Yes Consult Physician Routine Consulting Provider: Jose Mendoza Consult Reason/Comments: MG Do you want consulting provider notified?: Yes Primary care physician: Benjy Joy Hospital Course: HISTORY OF PRESENT ILLNESS: This is a 53-year-old female with a previous medical history significant for myasthenia gravis, migraine headaches, vitamin D deficiency, history of spondylosis of the lumbar spine status post laminectomy and foraminotomy that was done in 2018, patient came down with an upper respiratory infection about 2 days ago, and she came to the office 24 hours ago with increased sore throat and as well as increased cough and minimal short of breath, at that time she had a swab then she was placed on Medrol Dosepak along with Zithromax, patient came 24 hours later and she was complaining of severe shortness of breath, she had a chest x-ray earlier that did not show evidence of acute abnormalities, patient quite hypoxemic when she came to the office, she was referred to the emergency department for evaluation of possible pulmonary embolism, her swab came back positive for RSV AMB, because of the presentation and because of her underlying myasthenia gravis she was sent to the hospital for evaluation of the nerve testing as well as CT angiography to rule out any pulmon nahed embolism this was negative however she was admitted to the hospital for acute bronchitis due to RSV virus, and bronchospasm, she was seen in consultation by pulmonary medicine who placed her on Solu-Medrol 40 mg IV push every 8 hours, she was placed also on nebulized treatment [id number], Pulmicort twice every day, and she was admitted to the hospital for further evaluation recommendation. 08/23: Patient is sitting up in bed is feeling much better today, she continues to be on Solu-Medrol 40 mg IV push every 6 hours, she is not requiring oxygen today, her pleurisy is gone, she continues to have occasional cough, no phlegm production, she has no abdominal pain, nausea vomiting or diarrhea at this time, she will be kept in the hospital for another 24 hours, hopefully she will be ab le to be switched to oral prednisone tomorrow morning can be discharged home. 08/24: Patient is feeling a lot better today, she denies any chest pain, shortness of breath, she is not requiring any oxygen at this time, we will change her Solu-Medrol to prednisone 40 mg orally once every day with a taper, follow-up with the patient as an outpatient, continue patient on Airsupra 2 puffs every 4 hours as needed discontinue nebulized treatment discontinue Pulmicort as well as formoterol, no need for antibiotic as the patient has a viral infection we will follow-up with the patient very closely in the next week or so. Discharge diagnoses: 1. Acute hypoxemic respiratory failure due to acute RSV infection with severe bronchospasm. 2. History of myasthenia gravis. 3. History of migraine headache stable at this point in time. 4. History of chronic low back pain. 5. New onset hypertension. 6. History of SVTstatus post ablation. 7. History of endometriosis status post hysterectomy. Patient Condition at Discharge: Fair Plan - Discharge Summary Discharge Rx Participant: No New Discharge Prescriptions: No Action SUMAtriptan succinate [Imitrex] 50 mg PO BID PRN PRN Reason: Migraine Headache Pyridostigmine [Mestinon] 60 mg PO TID Gabapentin [Neurontin] 800 mg PO TID tiZANidine HCL [Zanaflex] 4 mg PO BID PRN PRN Reason: Muscle Spasm Azithromycin [Zithromax Z Pack] See Taper PO DIRECTED methylPREDNISolone [Medrol Dose Pack] See Taper PO DIRECTED Discharge Medication List Gabapentin [Neurontin] 800 mg PO TID 04/24/14 [History] Pyridostigmine [Mestinon] 60 mg PO TID 04/24/14 [History] SUMAtriptan succinate [Imitrex] 50 mg PO BID PRN 04/24/14 [History] tiZANidine HCL [Zanaflex] 4 mg PO BID PRN 07/09/14 [History] Azithromycin [Zithromax Z Pack] See Taper PO DIRECTED 08/22/24 [History] methylPREDNISolone [Medrol Dose Pack] See Taper PO DIRECTED 08/22/24 [History] Follow up Appointment(s)/Referral(s): Benjy Joy MD [Primary Care Provider] - 1-2 days
[2024-08-24] MEDS ORDERED: methylPREDNISolone SOD SUCCI 40 MG/ML 1 ML VIAL IV SCH (12:00)
--- NOTE | 2024-08-24 13:37 | P.PN ---
Subjective Progress Note Date: 08/24/24 This is a 53-year-old female with history of myasthenia gravis, who actually works here, and [employer], who states that she started not feeling well last Tuesday. By Tuesday, he was complaining of shortness of breath, and cough, and it progressed from that time. She apparently saw her primary care physician, both on Tuesday and Tuesday, and today, on Tuesday, he sent her here to the hospital to be evaluated. Her primary issue now is shortness of breath with any activity. She is coughing, producing some phlegm. 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 Anyway, she apparently did test positive for RSV. She is seen in the emergency department, room 21. She is on 2 L of oxygen. She is receiving saline at 125 cc an hour. As mentioned, she does have a history of myasthenia gravis and takes Mestinon for that. She denies all other medical problems. She does not smoke cigarettes or vapes. White count was 11.5, hemoglobin 14.4, hematocrit 44.7, and platelet count of 362,000. Coagulation studies were normal. Sodium 137, potassium 4.1, chlorides 106, CO2 23, BUN 14, creatinine 0.86. Calcium 10.8. Troponins were 0.0160.018 and 0.016. N-terminal proBNP was normal. Viral screen was positive for RSV. CT angiogram was negative for pulmonary embolism. It did show some mild bilateral central bronchial wall thickening consistent with bronchiolitis. The patient is seen today August 23, 2024 in follow-up on the regular medical floor. She is up ambulating in her room. Awake and alert in no acute distress. Feeling a bit better than yesterday. Not quite back to her baseline. Still with a dry nonproductive cough. Some chest tightness and wheezing. White count 6.0. Hemoglobin 13.1. Platelets 287. Sodium 140. Potassium 4.5. Bicarb 19. BUN 13. Creatinine 0.8. Troponins were negative x 3. Positive for RSV. She remains on DuoNeb inhalations, Pulmicort and Perforomist inhalations, IV Solu- Medrol. Normal saline at 75 mL/h. The patient is seen today August 24, 2024 in follow-up on the regular medical floor. She is sitting up in bed. Awake and alert in no acute distress. Feeling quite a bit better. No worsening shortness of breath, cough or congestion. Maintaining good O2 saturations in the 90s on room air. She is continued on DuoNeb inhalations, Pulmicort and Perforomist inhalations, IV Solu-Medrol. Lovenox for DVT prophylaxis. White count 9.3. Hemoglobin 12.6. Platelets 335. Sodium 137. Potassium 4.0. Bicarb 22. BUN 10. Creatinine 0.8. Objective - Vital Signs Vital signs: Vital Signs Temp 97.9 F 08/24/24 07:00 Pulse 64 08/24/24 11:58 Resp 16 08/24/24 07:00 BP 172/89 08/24/24 07:00 Pulse Ox 97 08/24/24 07:00 FiO2 Intake & Output 08/23/24 08/24/24 08/24/24 18:59 06:59 18:59 Intake Total 236 118 Balance 236 118 Intake: Oral 236 118 Other: Voiding Method Toilet # Voids 4 2 - Exam GENERAL EXAM: Alert, pleasant 53-year-old female, sitting up in bed, on room air, comfortable in no apparent distress. HEAD: Normocephalic. EYES: Normal reaction of pupils, equal size. NOSE: Clear with pink turbinates. THROAT: No erythema or exudates. NECK: No masses, no JVD. CHEST: No chest wall deformity. LUNGS: Equal air entry with few scattered rhonchi, end expiratory wheeze. CVS: S1 and S2 normal with no audible murmur, regular rhythm. ABDOMEN: No hepatosplenomegaly, normal bowel sounds, no guarding or rigidity. SPINE: No scoliosis or deformity SKIN: No rashes CENTRAL NERVOUS SYSTEM: No focal deficits, tone is normal in all 4 extremities. EXTREMITIES: There is no peripheral edema. No clubbing, no cyanosis. Per ipheral pulses are intact. - Labs CBC & Chem 7: 08/24/24 05:30 08/24/24 05:30 Labs: Abnormal Lab Results - Last 24 Hours (Table) 08/24/24 08/24/24 Range/Units 05:30 05:30 Eosinophils # 0 L (0.04-0.35) X 10*3/uL Total Bilirubin 0.2 L (0.3-1.2) mg/dL Total Protein 6.1 L (6.2-8.2) g/dL Assessment and Plan Assessment: Progressive shortness of breath and cough, secondary to RSV induced viral bronchiolitis No evidence of pulmonary embolism or pneumonia on CT angiogram History of myasthenia gravis, maintained on Mestinon Plan: The patient was seen and evaluated Labs and medications reviewed Currently stable and on room air Cleared for discharge To complete prednisone 50 mg daily x 7 Educated regarding taking medications after eating I have personally seen and examined the patient, performed the documentation and the assessment and plan as written. Number of minutes spent on the visit: 10 Dictation was produced using [employer] dictation software. Please excuse any grammatical, word or spelling errors.
== END 2024-08-24 12:55 | disposition home or self-care (01) ==
LOC: EC 09:32 → 6NMEDSUR 11:35
PROVIDERS: ADMIT Internal Medicine; ATTEND Internal Medicine
DX: J96.01 Acute respiratory failure with hypoxia (principal); J20.5 Acute bronchitis due to respiratory syncytial virus; J21.0 Acute bronchiolitis due to respiratory syncytial virus; G70.00 Myasthenia gravis without (acute) exacerbation; G43.909 Migraine, unspecified, not intractable, without status migrainosus; G89.29 Other chronic pain; M54.50 Low back pain, unspecified; I10 Essential (primary) hypertension; M79.7 Fibromyalgia; Z79.899 Other long term (current) drug therapy; Z88.0 Allergy status to penicillin; Z88.8 Allergy status to other drugs, medicaments and biological substances; Z88.1 Allergy status to other antibiotic agents; Z88.5 Allergy status to narcotic agent; Z88.2 Allergy status to sulfonamides
CPT/HCPCS: 96376 ×3; 96361 ×3; 96372 ×2; 96375; 96374; 99291; 36415; 94640 ×5; 94760; 93005; 85379; 83880; 80053 ×3; 83605; 83735; 84484; 85025 ×3; 85610; 85730; 87636; 71275; G0378 ×3; J1650 ×2; J1171; J7512; Q9967; J2919 ×3

== ENCOUNTER → 2024-09-25 | Outpatient (CLI) | payer MEDICAID ==
--- NOTE | 2024-09-25 14:30 | FL ---
Exam Date: 09/25/2024 12:43 PM. Modified barium swallow for dysphagia. Consistencies administered: Various consistency of barium. Fluoro time: Minute 43 seconds No images were sent to PACS. Please see speech pathology report. DAP: 133.61 mGym2 Gycm[facility], , 09/25/2024 2:27 PM
== END | disposition home or self-care (01) ==
LOC: RADFLMAIN 12:00
PROVIDERS: ATTEND Psychiatry & Neurology Neurology
DX: R13.10 Dysphagia, unspecified (principal)
CPT/HCPCS: 74230